=== PATIENT | male | born 1965 | race American Indian/Alaskan Native ===

== ENCOUNTER 2021-02-03 22:45 | Inpatient (IN) | payer MEDICAID ==
[2021-02-03] MEDS ORDERED: fentaNYL 100 MCG/2 ML SDV IVPUSH ONE (23:30)
[2021-02-03] MEDS ORDERED: Lactated Ringers 1,000 ML IV SCH (23:30)
--- NOTE | 2021-02-03 23:31 | EDM.PDOC ---
ED HPI GENERAL MEDICAL PROBLEM - General Chief Complaint: Abdominal Pain Stated Complaint: STOMACHE PAIN Time Seen by Provider: 02/03/21 23:25 Source of Information: Reports: Patient, RN Notes Reviewed History Limitations: Reports: No Limitations - History of Present Illness INITIAL COMMENTS - FREE TEXT/NARRATIVE: 55-year-old gentleman presents emergency department day complaint of epigastric pain, he states it started early this afternoon has progressively gotten worse no nausea sharp stabbing pain in the center of his abdomen right below his rib cage denies any surgeries Upper Abdomen Pain Score (Numeric/FACES): 10 - Related Data Allergies Allergy/AdvReac Type Severity Reaction Status Date / Time Penicillins Allergy Hives Verified 02/03/21 23:14 Home Meds: Home Meds . [Unable to Verify Home Med List] 02/03/21 [History] Past Medical History HEENT History: Reports: Impaired Vision Cardiovascular History: Reports: Hypertension Gastrointestinal History: Reports: Gastritis, GERD Genitourinary History: Reports: STD Musculoskeletal History: Reports: Fracture - Infectious Disease History Infectious Disease History: Reports: Chicken Pox Social & Family History - Tobacco Use Tobacco Use Status *Q: Current Every Day Tobacco User Years of Tobacco use: 30 Packs/Tins Daily: 0.5 - Caffeine Use Caffeine Use: Reports: Soda - Recreational Drug Use Recreational Drug Use: No ED ROS GENERAL - Review of Systems Review Of Systems: See Below Constitutional: Reports: No Symptoms HEENT: Reports: No Symptoms Respiratory: Reports: No Symptoms Cardiovascular: Reports: No Symptoms GI/Abdominal: Reports: Abdominal Pain. Denies: Constipation, Diarrhea, Nausea, Vomiting : Reports: No Symptoms ED EXAM, GI/ABD - Physical Exam Exam: See Below Exam Limited By: No Limitations General Appearance: Alert, Mild Distress Respiratory/Chest: No Respiratory Distress, Lungs Clear, Normal Breath Sounds, No Accessory Muscle Use, Chest Non-Tender Cardiovascular: Regular Rate, Rhythm, No Murmur GI/Abdominal Exam: Normal Bowel Sounds, Soft, No Distention, Tender (Epigastric region) Course - Vital Signs Last Recorded V/S: Last Vital Signs Temp 97.1 F 02/03/21 23:13 Pulse 64 02/03/21 23:13 Resp 16 02/03/21 23:13 BP 177/96 H 02/03/21 23:13 Pulse Ox 96 02/03/21 23:13 - Orders/Labs/Meds Orders: Active Orders 24 hr Category Date Time Status Peripheral IV Care [RC] . DIRECTED Care 02/03/21 23:28 Active UA W/MICROSCOPIC [URIN] Urgent Lab 02/03/21 23:28 Ordered Lactated Ringers [Ringers, Lactated] 1,000 ml Med 02/03/21 23:30 Active IV ASDIRECTED Sodium Chloride 0.9% [Saline Flush] Med 02/03/21 23:28 Active 10 ml FLUSH ASDIRECTED PRN Peripheral IV Insertion Adult [OM.PC] Urgent Oth 02/03/21 23:28 Ordered Medication Orders Lactated Ringer's (Ringers, Lactated) 1,000 mls @ 999 mls/hr IV ASDIRECTED NAZ Last Admin: 02/03/21 23:46 Dose: 999 mls/hr Documented by: THUY Sodium Chloride (Sodium Chloride 0.9% 10 Ml Syringe) 10 ml FLUSH ASDIRECTED PRN PRN Reason: Keep Vein Open Last Admin: 02/03/21 23:46 Dose: 10 ml Documented by: THUY Labs: Laboratory Tests 02/03/21 02/03/21 02/03/21 Range/Units 23:35 23:35 23:35 WBC 13.8 H (4.5-11.0) K/uL RBC 4.77 (4.30-5.90) M/uL Hgb 13.9 (12.0-15.0) g/dL Hct 41.1 (40.0-54.0) % MCV 86 (80-98) fL MCH 29 (27-31) pg MCHC 34 (32-36) % Plt Count 207 (150-400) K/uL Neut % (Auto) 88.8 H (36-66) % Lymph % (Auto) 3.8 L (24-44) % Dare % (Auto) 7.2 H (2-6) % Eos % (Auto) 0.1 L (2-4) % Baso % (Auto) 0.1 (0-1) % Sodium 137 L (140-148) mmol/L Potassium 4.2 (3.6-5.2) mmol/L Chloride 100 (100-108) mmol/L Carbon Dioxide 26 (21-32) mmol/L Anion Gap 15.2 H (5.0-14.0) mmol/L BUN 38 H (7-18) mg/dL Creatinine 2.1 H (0.8-1.3) mg/dL Est Cr Clr Drug Dosing 46.21 mL/min Estimated GFR (MDRD) 33 L (>60) Glucose 255 H (74-106) mg/dL Lactic Acid 2.2 H (0.4-2.0) mmol/L Calcium 8.4 L (8.5-10.1) mg/dL Total Bilirubin 1.9 H (0.2-1.0) mg/dL AST 1044 H (15-37) U/L ALT 993 H (12-78) U/L Alkaline Phosphatase 409 H (46-116) U/L Lactate Dehydrogenase (85-227) U/L Troponin I < 0.017 (0.000-0.056) ng/mL Total Protein 7.7 (6.4-8.2) g/dL Albumin 3.9 (3.4-5.0) g/dL Globulin 3.8 H (2.3-3.5) g/dL Albumin/Globulin Ratio 1.0 L (1.2-2.2) Lipase 67208 H (73-393) U/L Ethyl Alcohol mg/dL 02/04/21 02/04/21 Range/Units 00:25 00:29 WBC (4.5-11.0) K/uL RBC (4.30-5.90) M/uL Hgb (12.0-15.0) g/dL Hct (40.0-54.0) % MCV (80-98) fL MCH (27-31) pg MCHC (32-36) % Plt Count (150-400) K/uL Neut % (Auto) (36-66) % Lymph % (Auto) (24-44) % Dare % (Auto) (2-6) % Eos % (Auto) (2-4) % Baso % (Auto) (0-1) % Sodium (140-148) mmol/L Potassium (3.6-5.2) mmol/L Chloride (100-108) mmol/L Carbon Dioxide (21-32) mmol/L Anion Gap (5.0-14.0) mmol/L BUN (7-18) mg/dL Creatinine (0.8-1.3) mg/dL Est Cr Clr Drug Dosing mL/min Estimated GFR (MDRD) (>60) Glucose (74-106) mg/dL Lactic Acid (0.4-2.0) mmol/L Calcium (8.5-10.1) mg/dL Total Bilirubin (0.2-1.0) mg/dL AST (15-37) U/L ALT (12-78) U/L Alkaline Phosphatase (46-116) U/L Lactate Dehydrogenase 538 H (85-227) U/L Troponin I (0.000-0.056) ng/mL Total Protein (6.4-8.2) g/dL Albumin (3.4-5.0) g/dL Globulin (2.3-3.5) g/dL Albumin/Globulin Ratio (1.2-2.2) Lipase (73-393) U/L Ethyl Alcohol 7 mg/dL Meds: Medications Generic Name Dose Route Start Last Admin Trade Name Freq PRN Reason Stop Dose Admin Lactated Ringer's 1,000 mls @ 999 mls/hr 02/03/21 23:30 02/03/21 23:46 Ringers, Lactated IV 999 mls/hr ASDIRECTED NAZ Administration Sodium Chloride 10 ml 02/03/21 23:28 02/03/21 23:46 Sodium Chloride 0.9% 10 Ml Syringe FLUSH 10 ml ASDIRECTED PRN Administration Keep Vein Open Discontinued Medications Generic Name Dose Route Start Last Admin Trade Name Freq PRN Reason Stop Dose Admin Fentanyl 50 mcg 02/03/21 23:30 02/03/21 23:46 Fentanyl 100 Mcg/2 Ml Sdv IVPUSH 02/03/21 23:31 50 mcg ONETIME ONE Administration Sodium Chloride 81 mls @ 4 mls/sec 02/04/21 00:03 02/04/21 00:20 Normal Saline IV 02/04/21 00:04 4 mls/sec ASDIRECTED STA Administration Iopamidol 136 ml 02/04/21 00:02 02/04/21 00:20 Iopamidol 612 Mg/Ml 150 Ml Bottle IV 02/04/21 00:03 150 ml . DIRECTED STA Administration Departure - Departure Time of Disposition: 01:17 Disposition: Admitted As Inpatient 66 Condition: Poor Clinical Impression: Pancreatitis Qualifiers: Chronicity: acute Pancreatitis type: unspecified pancreatitis type Acute pancreatitis complication: no infection or necrosis Qualified Code(s): K85.90 - Acute pancreatitis without necrosis or infection, unspecified - Discharge Information Referrals: PCP,None [Primary Care Provider] - Forms: ED Department Discharge Sepsis Event Note (ED) - Evaluation Sepsis Screening Result: No Definite Risk - Focused Exam Vital Signs: Vital Signs Temp Pulse Resp BP Pulse Ox 02/03/21 23:13 97.1 F 64 16 177/96 H 96 02/03/21 23:11 97.1 F 64 16 177/96 H 96 - My Orders Last 24 Hours: My Active Orders 02/03/21 23:28 Peripheral IV Care [RC] . DIRECTED UA W/MICROSCOPIC [URIN] Urgent Sodium Chloride 0.9% [Saline Flush] 10 ml FLUSH ASDIRECTED PRN Peripheral IV Insertion Adult [OM.PC] Urgent 02/03/21 23:30 Lactated Ringers [Ringers, Lactated] 1,000 ml IV ASDIRECTED - Assessment/Plan Last 24 Hours: My Active Orders 02/03/21 23:28 Peripheral IV Care [RC] . DIRECTED UA W/MICROSCOPIC [URIN] Urgent Sodium Chloride 0.9% [Saline Flush] 10 ml FLUSH ASDIRECTED PRN Peripheral IV Insertion Adult [OM.PC] Urgent 02/03/21 23:30 Lactated Ringers [Ringers, Lactated] 1,000 ml IV ASDIRECTED Plan: Assessment Acuity = acute Site and laterality = pancreatitis Etiology = unknown Manifestations = abdominal pain Location of injury = Home Lab values = WBC elevated 13.8 consistent leukocytosis, creatinine elevated 2.1 consistent with acute renal failure stage G3 a glucose elevated to 55 consistent hyperglycemia lactic acid slightly elevated 2.2 total bilirubin elevated 1.9 consistent with hyperbilirubinemia AST 1044 ALT 993 consistent with elevated liver enzymes LDH elevated 538 [place] score 5 troponin was negative lipase elevated 13,278 consistent with a pancreatitis alcohol is at 7 CT scan describes acute pancreatitis no necrosis of the pancreas gallbladder is dilated however no stones are identified Plan Call discussed case hospitalist on-call at 1 AM kindly agreed to come evaluate the patient in the hospital for admission plan for ultrasound in the morning for further evaluation of the etiology of pancreatitis he denies alcohol use states he has not used alcohol for 8 months This note was dictated using [employer] voice recognition software please call with any questions on syntax or grammar.
[2021-02-03] MEDS: Sodium Chloride 0.9% 10 ML Syringe FLUSH PRN (23:46)
[2021-02-04] MEDS ORDERED: Iopamidol 612 MG/ML 150 ML Bottle IV STA (00:02)
--- NOTE | 2021-02-04 01:05 | CRLCT ---
INDICATION: EPIGASTRIC PAIN CT ABDOMEN AND PELVIS WITH CONTRAST TECHNIQUE: Multidetector CT imaging was performed through the abdomen and pelvis following intravenous contrast administration using 136 mL Isovue-300. Coronal and sagittal reconstructions were generated. COMPARISON: None. FINDINGS: Lower chest: Mild bibasilar lung atelectasis, greatest on the left. Liver: Within normal limits. Gallbladder and bile ducts: Nonspecific moderate distention of the gallbladder. No calcified gallstones identified. Question of mild gallbladder wall thickening or pericholecystic fluid. Intrahepatic and extrahepatic biliary dilation, with the proximal extrahepatic bile duct measuring up to 17 millimeters in diameter. No calcified intraductal stone identified. Pancreas: Prominent peripancreatic fat stranding consistent with acute pancreatitis. No evidence of pancreatic necrosis. Associated mild fluid extends into the central mesentery. Spleen: Normal. Adrenals: No nodules or masses. Kidneys, ureters, and urinary bladder: Bilateral renal cortical scarring and mild renal atrophy. No hydronephrosis. Mild diffuse wall thickening of the urinary bladder. Gastrointestinal tract: Slight wall thickening of the descending and proximal transverse segments of the duodenum likely secondary to inflammation of the adjacent pancreas. No evidence of bowel obstruction. The appendix is normal. Vascular structures: Normal caliber abdominal aorta. Patent portal and splenic veins. Peritoneum: No free air, abscess, or significant free fluid. Lymph nodes: No pathologically enlarged nodes identified. Reproductive organs: Mild prostatomegaly. Bones: Moderate multilevel spondylosis. IMPRESSION: 1. Acute pancreatitis of moderate severity. Correlation with serum amylase/lipase is suggested. No evidence of pancreatic necrosis. 2. Nonspecific moderate gallbladder distention. Question of mild gallbladder wall thickening and/or mild pericholecystic fluid. Moderate biliary dilation. Ultrasound is recommended for further evaluation, and MRCP may also be considered. 3. Nonacute additional findings as detailed above. SONIA RANDOLPH MD [employer] Dictated by Cesario Randolph MD @ 02/04/2021 1:04:18 AM Dictated by: Cesario Randolph MD @ 02/04/2021 01:04:30 (Electronically Signed)
[2021-02-04] MEDS ORDERED: fentaNYL 100 MCG/2 ML SDV IVPUSH ONE (01:45)
[2021-02-04] MEDS ORDERED: Albuterol 0.083% 2.5 MG/3 ML Neb Soln NEB PRN (01:52)
[2021-02-04] MEDS ORDERED: fentaNYL 100 MCG/2 ML SDV IVPUSH PRN (01:52)
--- NOTE | 2021-02-04 01:55 | PCM.HP.2 ---
H&P History of Present Illness - General Date of Service: 02/03/21 Admit Problem/Dx: Admission Diagnosis/Problem Admission Diagnosis/Problem Pancreatitis Source of Information: Patient, Provider, RN History Limitations: Reports: No Limitations - History of Present Illness Initial Comments - Free Text/Narative: chief complaint: abdominal pain ER Note. 55-year-old gentleman presents emergency department day complaint of epigastric pain, he states it started early this afternoon has progressively gotten worse no nausea sharp stabbing pain in the center of his abdomen right below his rib cage denies any surgeries. Report hasnot been feeling well for 2 months- worse the past two weeks. Last meal at 3:30 pm today- ate a 3 little sandwiches and water- but abdominal pain was worse. Lab values = WBC elevated 13.8 consistent leukocytosis, creatinine elevated 2.1 consistent with acute renal failure stage G3 a glucose elevated to 55 consistent hyperglycemia lactic acid slightly elevated 2.2 total bilirubin elevated 1.9 consistent with hyperbilirubinemia AST 1044 ALT 993 consistent with elevated liver enzymes LDH elevated 538 Fortson score 5 troponin was negative lipase elevated 13,278 consistent with a pancreatitis alcohol is at 7 CT scan describes acute pancreatitis no necrosis of the pancreas gallbladder is dilated however no stones are identified Plan Call discussed case hospitalist on-call at 1 AM kindly agreed to come evaluate the patient in the hospital for admission plan for ultrasound in the morning for further evaluation of the etiology of pancreatitis he denies alcohol use states he has not used alcohol for 8 months Onset of Symptoms: Reports: Today Symptom Onset Date: 02/04/21 Symptom Onset Time: 15:30 Duration of Symptoms: Reports: Resolved Prior to Arrival, Other (reports not feeling well for 2 months, worse the past two weeks.) Location: Reports: Abdomen Quality: Reports: Sharp, Stabbing Severity: Severe (rate pain at 7 or 8) Improves with: Reports: None Worsens with: Reports: Eating Associated Symptoms: Reports: Fever/Chills, Loss of Appetite Upper Abdomen Pain Score (Numeric/FACES): 10 - Related Data Allergies/Adverse Reactions: Allergies Allergy/AdvReac Type Severity Reaction Status Date / Time Penicillins Allergy Hives Verified 02/04/21 02:14 Home Medications: Home Meds hydroCHLOROthiazide [Hydrochlorothiazide] 12.5 mg PO DAILY 02/04/21 [History] Past Medical History HEENT History: Reports: Impaired Vision Cardiovascular History: Reports: Hypertension Gastrointestinal History: Reports: Gastritis, GERD Genitourinary History: Reports: STD Musculoskeletal History: Reports: Fracture - Infectious Disease History Infectious Disease History: Reports: Chicken Pox Social & Family History - Tobacco Use Tobacco Use Status *Q: Current Every Day Tobacco User Years of Tobacco use: 30 Packs/Tins Daily: 0.5 - Caffeine Use Caffeine Use: Reports: Soda - Recreational Drug Use Recreational Drug Use: No - Living Situation & Occupation Living situation: Reports: Single, Alone Occupation: Unemployed (lives alone in [facility], has 14 children by 7 different Ladies, had his first child a daughter at age 13 years.) H&P Review of Systems - Review of Systems: Review Of Systems: See Below General: Reports: Fever, Other (neat and groomed, pleasant, curled in a ball, distressed) HEENT: Reports: Glasses Pulmonary: Reports: No Symptoms Cardiovascular: Reports: No Symptoms Gastrointestinal: Reports: Abdominal Pain Genitourinary: Reports: No Symptoms Musculoskeletal: Reports: No Symptoms Skin: Reports: No Symptoms Psychiatric: Reports: No Symptoms Neurological: Reports: No Symptoms Hematologic/Lymphatic: Reports: No Symptoms Immunologic: Reports: No Symptoms Exam - Exam Exam: See Below - Vital Signs Vital Signs: Last Vital Signs Temp 97.1 F 02/03/21 23:13 Pulse 64 02/03/21 23:13 Resp 16 02/03/21 23:13 BP 177/96 H 02/03/21 23:13 Pulse Ox 96 02/03/21 23:13 Weight: 200 lb - Exam General: Alert, Oriented, Cooperative, Moderate Distress, Other (neat and groome d, pleasant, curled in a ball position, rates pain at 7 or 8.) HEENT: PERRLA, Conjunctiva Clear, EACs Clear, EOMI, Hearing Intact, Mucosa Moist & Misenheimer, Nares Patent, Normal Nasal Septum, Posterior Pharynx Clear, TMs Clear, Other (no natural teeth present) Neck: Supple, Trachea Midline, 2 Lungs: Clear to Auscultation, Normal Respiratory Effort Cardiovascular: Regular Rate, Regular Rhythm, Normal S1, Normal S2 GI/Abdominal Exam: Normal Bowel Sounds, No Distention, Guarding (generalized), Tender (generalized) (Male) Exam: Deferred Rectal (Males) Exam: Deferred Back Exam: Normal Inspection, Full Range of Motion Extremities: Normal Inspection, Normal Range of Motion, Non-Tender, No Pedal Edema, Normal Capillary Refill Peripheral Pulses: 2+: Radial (L), Radial (R), Dorsalis Pedis (L), Dorsalis Pedis (R) Skin: Warm, Dry, Intact Neurological: Cranial Nerves Intact, Reflexes Equal Bilateral Neuro Extensive - Mental Status: Alert, Oriented x3, Normal Mood/Affect, Normal Cognition Neuro Extensive - Motor, Sensory, Reflexes: CN II-XII Intact, Normal Gait, Normal Reflexes Psychiatric: Alert, Normal Affect, Normal Mood - Patient Data Lab Results Last 24 hrs: Laboratory Results - last 24 hr 02/03/21 02/03/21 02/03/21 Range/Units 23:35 23:35 23:35 WBC 13.8 H (4.5-11.0) K/uL RBC 4.77 (4.30-5.90) M/uL Hgb 13.9 (12.0-15.0) g/dL Hct 41.1 (40.0-54.0) % MCV 86 (80-98) fL MCH 29 (27-31) pg MCHC 34 (32-36) % Plt Count 207 (150-400) K/uL Neut % (Auto) 88.8 H (36-66) % Lymph % (Auto) 3.8 L (24-44) % Traverse % (Auto) 7.2 H (2-6) % Eos % (Auto) 0.1 L (2-4) % Baso % (Auto) 0.1 (0-1) % Sodium 137 L (140-148) mmol/L Potassium 4.2 (3.6-5.2) mmol/L Chloride 100 (100-108) mmol/L Carbon Dioxide 26 (21-32) mmol/L Anion Gap 15.2 H (5.0-14.0) mmol/L BUN 38 H (7-18) mg/dL Creatinine 2.1 H (0.8-1.3) mg/dL Est Cr Clr Drug Dosing 46.21 mL/min Estimated GFR (MDRD) 33 L (>60) Glucose 255 H (74-106) mg/dL Lactic Acid 2.2 H (0.4-2.0) mmol/L Calcium 8.4 L (8.5-10.1) mg/dL Total Bilirubin 1.9 H (0.2-1.0) mg/dL AST 1044 H (15-37) U/L ALT 993 H (12-78) U/L Alkaline Phosphatase 409 H (46-116) U/L Lactate Dehydrogenase (85-227) U/L Troponin I < 0.017 (0.000-0.056) ng/mL Total Protein 7.7 (6.4-8.2) g/dL Albumin 3.9 (3.4-5.0) g/dL Globulin 3.8 H (2.3-3.5) g/dL Albumin/Globulin Ratio 1.0 L (1.2-2.2) Lipase 54865 H (73-393) U/L Ethyl Alcohol mg/dL 02/04/21 02/04/21 Range/Units 00:25 00:29 WBC (4.5-11.0) K/uL RBC (4.30-5.90) M/uL Hgb (12.0-15.0) g/dL Hct (40.0-54.0) % MCV (80-98) fL MCH (27-31) pg MCHC (32-36) % Plt Count (150-400) K/uL Neut % (Auto) (36-66) % Lymph % (Auto) (24-44) % Traverse % (Auto) (2-6) % Eos % (Auto) (2-4) % Baso % (Auto) (0-1) % Sodium (140-148) mmol/L Potassium (3.6-5.2) mmol/L Chloride (100-108) mmol/L Carbon Dioxide (21-32) mmol/L Anion Gap (5.0-14.0) mmol/L BUN (7-18) mg/dL Creatinine (0.8-1.3) mg/dL Est Cr Clr Drug Dosing mL/min Estimated GFR (MDRD) (>60) Glucose (74-106) mg/dL Lactic Acid (0.4-2.0) mmol/L Calcium (8.5-10.1) mg/dL Total Bilirubin (0.2-1.0) mg/dL AST (15-37) U/L ALT (12-78) U/L Alkaline Phosphatase (46-116) U/L Lactate Dehydrogenase 538 H (85-227) U/L Troponin I (0.000-0.056) ng/mL Total Protein (6.4-8.2) g/dL Albumin (3.4-5.0) g/dL Globulin (2.3-3.5) g/dL Albumin/Globulin Ratio (1.2-2.2) Lipase (73-393) U/L Ethyl Alcohol 7 mg/dL Result Diagrams: 02/03/21 23:35 02/03/21 23:35 Sepsis Event Note - Evaluation Sepsis Screening Result: No Definite Risk - Focused Exam Vital Signs: Vital Signs Temp Pulse Resp BP Pulse Ox 02/03/21 23:13 97.1 F 64 16 177/96 H 96 02/03/21 23:11 97.1 F 64 16 177/96 H 96 - Problem List (1) Pancreatitis SNOMED Code(s): 53245232 ICD Code: K85.90 - ACUTE PANCREATITIS WITHOUT NECROSIS OR INFECTION, UNSP Status: Acute Priority: High Current Visit: Yes Qualifiers: Chronicity: acute Pancreatitis type: unspecified pancreatitis type Acute pancreatitis complication: no infection or necrosis Qualified Code(s): K85.90 - Acute pancreatitis without necrosis or infection, unspecified (2) Heroin use disorder, moderate, in early remission, on maintenance therapy, dependence SNOMED Code(s): 162514560, 675759708 ICD Code: F11.21 - OPIOID DEPENDENCE, IN REMISSION Status: Acute Priority: Low Current Visit: Yes (3) Alcoholism in recovery SNOMED Code(s): 04564391 ICD Code: F10.21 - ALCOHOL DEPENDENCE, IN REMISSION Status: Acute Priority: Low Current Visit: Yes (4) Tobacco dependence SNOMED Code(s): 03382205 ICD Code: F17.200 - NICOTINE DEPENDENCE, UNSPECIFIED, UNCOMPLICATED Status: Acute Priority: Low Current Visit: Yes Problem List Initiated/Reviewed/Updated: Yes Orders Last 24hrs: Active Orders 24 hr Category Date Time Status Cardiac Monitoring [RC] CONTINUOUS Care 02/04/21 01:52 Active Diabetes Education [RC] Click to Edit Care 02/04/21 01:52 Active Intake and Output [RC] QSHIFT Care 02/04/21 01:52 Active Notify Provider Vital Signs [RC] ASDIRECTED Care 02/04/21 01:52 Active Notify Provider [RC] PRN Care 02/04/21 01:52 Active Oxygen Therapy [RC] PRN Care 02/04/21 01:52 Active Peripheral IV Care [RC] . DIRECTED Care 02/03/21 23:28 Active Pulse Oximetry [RC] CONTINUOUS Care 02/04/21 01:52 Active RT Aerosol Therapy [RC] ASDIRECTED Care 02/04/21 01:52 Active Up ad Stephanie [RC] ASDIRECTED Care 02/04/21 01:52 Active VTE/DVT Education [RC] Per Unit Routine Care 02/04/21 01:52 Active Vital Signs [RC] Q4H Care 02/04/21 01:52 Active Nothing per Oral Now Diet [DIET] Diet 02/04/21 Breakfast Active Abdomen Comp [US] Timed Exams 02/04/21 08:30 Ordered AMYLASE [CHEM] AM Lab 02/04/21 05:11 Ordered BASIC METABOLIC PANEL,BMP [CHEM] AM Lab 02/04/21 05:11 Ordered CBC WITH AUTO DIFF [HEME] AM Lab 02/04/21 05:11 Ordered DRUG SCREEN, URINE [URCHEM] Urgent Lab 02/04/21 01:52 Ordered GLUCOSE POC LAB TO COLLECT JPM [POC] QIDACANDBED Lab 02/04/21 07:30 Ordered GLUCOSE POC LAB TO COLLECT JPM [POC] QIDACANDBED Lab 02/04/21 11:30 Ordered GLUCOSE POC LAB TO COLLECT JPM [POC] QIDACANDBED Lab 02/04/21 16:30 Ordered GLUCOSE POC LAB TO COLLECT JPM [POC] QIDACANDBED Lab 02/04/21 21:00 Ordered LIPASE [CHEM] AM Lab 02/04/21 05:11 Ordered UA W/MICROSCOPIC [URIN] Urgent Lab 02/03/21 23:28 Ordered UA W/MICROSCOPIC [URIN] Urgent Lab 02/04/21 01:52 Ordered Albuterol [Proventil Neb Soln] Med 02/04/21 01:52 Ordered 2.5 mg NEB Q4H PRN Insulin Lispro [HumaLOG] Med 02/04/21 07:00 Ordered See Protocol SUBCUT QIDACANDBED Lactated Ringers [Ringers, Lactated] 1,000 ml Med 02/03/21 23:30 Active IV ASDIRECTED Nicotine [Habitrol] Med 02/04/21 09:00 Ordered 14 mg TRDERM DAILY Pantoprazole [ProTONIX IV] Med 02/04/21 09:00 Ordered 40 mg IV DAILY Sodium Chloride 0.9% [Normal Saline] 1,000 ml Med 02/04/21 01:52 Ordered IV ASDIRECTED Sodium Chloride 0.9% [Saline Flush] Med 02/03/21 23:28 Active 10 ml FLUSH ASDIRECTED PRN fentaNYL [Sublimaze] Med 02/04/21 01:52 Ordered 50 mcg IVPUSH Q6H PRN Peripheral IV Insertion Adult [OM.PC] Urgent Oth 02/03/21 23:28 Ordered Sequential Compression Device [OM.PC] Per Unit Routine Oth 02/04/21 01:52 Ordered Resuscitation Status Routine Resus Stat 02/04/21 01:39 Ordered Medication Orders Albuterol (Albuterol 0.083% 2.5 Mg/3 Ml Neb Soln) 2.5 mg NEB Q4H PRN PRN Reason: Shortness Of Breath/wheezing Fentanyl (Fentanyl 100 Mcg/2 Ml Sdv) 50 mcg IVPUSH Q6H PRN PRN Reason: Pain (severe 7-10) Lactated Ringer's (Ringers, Lactated) 1,000 mls @ 999 mls/hr IV ASDIRECTED [facility] Last Admin: 02/03/21 23:46 Dose: 999 mls/hr Documented by: THUY Sodium Chloride (Normal Saline) 1,000 mls @ 125 mls/hr IV ASDIRECTED [facility] Insulin Human Lispro (Insulin Lispro 100 Unit/Ml 3 Ml Kwikpen) 0 unit SUBCUT QIDACANDBED [facility]; Protocol Nicotine (Nicotine 14 Mg/24 Hr Patch) 14 mg TRDERM DAILY [facility] Pantoprazole Sodium (Pantoprazole 40 Mg Vial) 40 mg IV DAILY [facility] Sodium Chloride (Sodium Chloride 0.9% 10 Ml Syringe) 10 ml FLUSH ASDIRECTED PRN PRN Reason: Keep Vein Open Last Admin: 02/03/21 23:46 Dose: 10 ml Documented by: THUY Assessment/Plan Comment:: ASSESSMENT / PLAN OF CARE: PANCREATITIS This is a 55 year old male reports two week history of worsen abdominal pain but has been sick for two months. Lab values = CBC unremarkable WBC 13.8, hgb 13.9, hct 41.1, plts 207 , Na+ 137, K+ 4.2, cl 100, anion gap 15.2, BUN 38, Cr 2.1, glucose 255, cO2 26, gfr 33. lipse 04389,lactic acid 2.2, Ca+ 8.4, total bili 1.9, ast 1044, ast 993, alk. phos 409, LD 538, Troponin <0.017, total protein 7.7, albumin 3.9, alcohol 7, urine with micro pending, urine drug screen pending. CT scan of the abdomen- pelvis with contrast- gallbladder and bile ducts : nonspecific moderate distention of the gallbladder. -see full report. Pancrease : prominent peripancreatic fat stranding consistent with acute pancreatitis. no evidence of pancreatic necrosis. associated mild fluid extends into the central mesentery.- see full report. Acute Pancreatitis -Admit to ICU Med-Surg overflow for further monitoring -NPO -IV Fluids Normal Saline at 125 mL per hour -IV Fentanyl 50 mcg every 6 hours for pain control rate at 7 to 9 -anti nausea medication ordered -Advise to notify nurses of any fever or worsen pain -And a.m. labs: CBC, BMP, CRP, amylase, lipase Hyperglycemia - undiagnosed Diabetes type 2 -blood glucose checks before meals and at bedtime -low dose sliding scale History of Heroin addiction- reports was a daily user of IV heroin for 20 years, started Opiate Treatment Program at [place], [place]. May 2020 -reports Suboxone 12 mg sl daily dosing History of Alcohol addiction- reports drank 1 liter of Vodka and 1 case of beer daily "long time", stopped May 2020 -Outpatient Treatment Program Tobacco dependence -Nicotine patch 14 mg daily. Maintenance issues -Orders home meds reviewed and ordered as appropriate -Nutrition: NPO -Owen catheter not indicated at this time -DVT: SCD -PPI; IV Protonix 40mg daily CODE STATUS: FULL Admission status: Admit to ICU Med-Surg overflow This Patient is Admitted for Inpatient Services and is Medically Appropriate and Meets Medical Necessity for Inpatient Admission. I Reasonably Expect the Patient will Require Inpatient Services that Span a Period of Over 2 Midnights. My Rationale for Medically Necessary Inpatient Care will be Found in the Admission History & Physical and Progress Notes. I Reasonably Expect the Patient to be Discharged or Transferred within 96 Hours After Admission to this [facility] Hospital. Disposition: home Primary care provider: Donna Heller [facility] Hospitalist: Dr. Torre - Mortality Measure Prognosis:: Good
[2021-02-04] MEDS: Sodium Chloride 0.9% 1,000 ML IV SCH ×3 (02:27→17:07)
[2021-02-04] MEDS: Pantoprazole 40 MG Vial IV SCH (08:08)
[2021-02-04] MEDS: Nicotine 14 MG/24 Hr Patch TRDERM SCH (08:09)
[2021-02-04] MEDS: Insulin Lispro 100 Unit/ML 3 ML KwikPen SUBCUT SCH ×4 (08:17→20:23)
[2021-02-04] MEDS ORDERED: LORazepam 2 MG/ML SDV IVPUSH PRN (08:59)
[2021-02-04] MEDS ORDERED: Ondansetron 4 MG Tab.DIS PO PRN (08:59)
--- NOTE | 2021-02-04 09:03 | PCM.PN ---
- General Info Date of Service: 02/04/21 Subjective Update: There were no acute events overnight. The patient reports that his pain is better today than yesterday but still moderate in intensity. Pain is located in the epigastrium and radiates through the back. Laying on the right side makes the pain less. Some nausea but no vomiting. No fevers. Lipase level is down to about 18,000. Right upper quadrant ultrasound showed stones but was otherwise technically difficult due to bowel gas. - Review of Systems General: Denies: Fever - Patient Data Vitals - Most Recent: Last Vital Signs Temp 36.2 C 02/04/21 02:28 Pulse 61 02/04/21 05:56 Resp 17 02/04/21 05:56 BP 158/75 H 02/04/21 05:56 Pulse Ox 98 02/04/21 05:56 Weight - Most Recent: 94.03 kg I&O - Last 24 Hours: Intake & Output 02/03/21 02/04/21 02/04/21 22:59 06:59 14:59 Output Total 625 Balance -625 Lab Results Last 24 Hours: Laboratory Results - last 24 hr 02/03/21 02/03/21 02/03/21 Range/Units 23:35 23:35 23:35 WBC 13.8 H (4.5-11.0) K/uL RBC 4.77 (4.30-5.90) M/uL Hgb 13.9 (12.0-15.0) g/dL Hct 41.1 (40.0-54.0) % MCV 86 (80-98) fL MCH 29 (27-31) pg MCHC 34 (32-36) % Plt Count 207 (150-400) K/uL Neut % (Auto) 88.8 H (36-66) % Lymph % (Auto) 3.8 L (24-44) % [place] % (Auto) 7.2 H (2-6) % Eos % (Auto) 0.1 L (2-4) % Baso % (Auto) 0.1 (0-1) % Sodium 137 L (140-148) mmol/L Potassium 4.2 (3.6-5.2) mmol/L Chloride 100 (100-108) mmol/L Carbon Dioxide 26 (21-32) mmol/L Anion Gap 15.2 H (5.0-14.0) mmol/L BUN 38 H (7-18) mg/dL Creatinine 2.1 H (0.8-1.3) mg/dL Est Cr Clr Drug Dosing 46.21 mL/min Estimated GFR (MDRD) 33 L (>60) Glucose 255 H (74-106) mg/dL Lactic Acid 2.2 H (0.4-2.0) mmol/L Calcium 8.4 L (8.5-10.1) mg/dL Total Bilirubin 1.9 H (0.2-1.0) mg/dL Direct Bilirubin (0.0-0.2) mg/dL Indirect Bilirubin AST 1044 H (15-37) U/L ALT 993 H (12-78) U/L Alkaline Phosphatase 409 H (46-116) U/L Lactate Dehydrogenase (85-227) U/L Troponin I < 0.017 (0.000-0.056) ng/mL Total Protein 7.7 (6.4-8.2) g/dL Albumin 3.9 (3.4-5.0) g/dL Globulin 3.8 H (2.3-3.5) g/dL Albumin/Globulin Ratio 1.0 L (1.2-2.2) Amylase (25-115) U/L Lipase 94112 H (73-393) U/L Urine Color (YELLOW) Urine Appearance (CLEAR) Urine pH (5.0-8.0) Ur Specific [place] (1.008-1.030) Urine Protein (NEGATIVE) mg/dL Urine Glucose (UA) (NEGATIVE) mg/dL Urine Ketones (NEGATIVE) mg/dL Urine Occult Blood (NEGATIVE) Urine Nitrite (NEGATIVE) Urine Bilirubin (NEGATIVE) Urine Urobilinogen (0.2-1.0) EU/dL Ur Leukocyte Esterase (NEGATIVE) Urine RBC (0-5) Urine WBC (0-5) Ur Epithelial Cells Amorphous Sediment Urine Bacteria Urine Mucus Urine Opiates Screen (NEGATIVE) Ur Oxycodone Screen (NEGATIVE) Urine Methadone Screen (NEGATIVE) Ur Propoxyphene Screen (NEGATIVE) Ur Barbiturates Screen (NEGATIVE) Ur Tricyclics Screen (NEGATIVE) Ur Phencyclidine Scrn (NEGATIVE) Ur Amphetamine Screen (NEGATIVE) U Methamphetamines Scrn (NEGATIVE) Urine MDMA Screen (NEGATIVE) U Benzodiazepines Scrn (NEGATIVE) U Cocaine Metab Screen (NEGATIVE) U Marijuana (THC) Screen (NEGATIVE) Ethyl Alcohol mg/dL 02/04/21 02/04/21 02/04/21 Range/Units 00:25 00:29 05:00 WBC 16.2 H (4.5-11.0) K/uL RBC 4.61 (4.30-5.90) M/uL Hgb 13.3 (12.0-15.0) g/dL Hct 39.3 L (40.0-54.0) % MCV 85 (80-98) fL MCH 29 (27-31) pg MCHC 34 (32-36) % Plt Count 212 (150-400) K/uL Neut % (Auto) 85.7 H (36-66) % Lymph % (Auto) 7.2 L (24-44) % [place] % (Auto) 7.0 H (2-6) % Eos % (Auto) 0.0 L (2-4) % Baso % (Auto) 0.1 (0-1) % Sodium (140-148) mmol/L Potassium (3.6-5.2) mmol/L Chloride (100-108) mmol/L Carbon Dioxide (21-32) mmol/L Anion Gap (5.0-14.0) mmol/L BUN (7-18) mg/dL Creatinine (0.8-1.3) mg/dL Est Cr Clr Drug Dosing mL/min Estimated GFR (MDRD) (>60) Glucose (74-106) mg/dL Lactic Acid (0.4-2.0) mmol/L Calcium (8.5-10.1) mg/dL Total Bilirubin (0.2-1.0) mg/dL Direct Bilirubin (0.0-0.2) mg/dL Indirect Bilirubin AST (15-37) U/L ALT (12-78) U/L Alkaline Phosphatase (46-116) U/L Lactate Dehydrogenase 538 H (85-227) U/L Troponin I (0.000-0.056) ng/mL Total Protein (6.4-8.2) g/dL Albumin (3.4-5.0) g/dL Globulin (2.3-3.5) g/dL Albumin/Globulin Ratio (1.2-2.2) Amylase (25-115) U/L Lipase (73-393) U/L Urine Color (YELLOW) Urine Appearance (CLEAR) Urine pH (5.0-8.0) Ur Specific [place] (1.008-1.030) Urine Protein (NEGATIVE) mg/dL Urine Glucose (UA) (NEGATIVE) mg/dL Urine Ketones (NEGATIVE) mg/dL Urine Occult Blood (NEGATIVE) Urine Nitrite (NEGATIVE) Urine Bilirubin (NEGATIVE) Urine Urobilinogen (0.2-1.0) EU/dL Ur Leukocyte Esterase (NEGATIVE) Urine RBC (0-5) Urine WBC (0-5) Ur Epithelial Cells Amorphous Sediment Urine Bacteria Urine Mucus Urine Opiates Screen (NEGATIVE) Ur Oxycodone Screen (NEGATIVE) Urine Methadone Screen (NEGATIVE) Ur Propoxyphene Screen (NEGATIVE) Ur Barbiturates Screen (NEGATIVE) Ur Tricyclics Screen (NEGATIVE) Ur Phencyclidine Scrn (NEGATIVE) Ur Amphetamine Screen (NEGATIVE) U Methamphetamines Scrn (NEGATIVE) Urine MDMA Screen (NEGATIVE) U Benzodiazepines Scrn (NEGATIVE) U Cocaine Metab Screen (NEGATIVE) U Marijuana (THC) Screen (NEGATIVE) Ethyl Alcohol 7 mg/dL 02/04/21 02/04/21 02/04/21 Range/Units 05:00 07:55 07:55 WBC (4.5-11.0) K/uL RBC (4.30-5.90) M/uL Hgb (12.0-15.0) g/dL Hct (40.0-54.0) % MCV (80-98) fL MCH (27-31) pg MCHC (32-36) % Plt Count (150-400) K/uL Neut % (Auto) (36-66) % Lymph % (Auto) (24-44) % [place] % (Auto) (2-6) % Eos % (Auto) (2-4) % Baso % (Auto) (0-1) % Sodium 138 L (140-148) mmol/L Potassium 5.3 H (3.6-5.2) mmol/L Chloride 103 (100-108) mmol/L Carbon Dioxide 27 (21-32) mmol/L Anion Gap 13.3 (5.0-14.0) mmol/L BUN 35 H (7-18) mg/dL Creatinine 1.9 H (0.8-1.3) mg/dL Est Cr Clr Drug Dosing 51.07 mL/min Estimated GFR (MDRD) 37 L (>60) Glucose 141 H (74-106) mg/dL Lactic Acid (0.4-2.0) mmol/L Calcium 8.5 (8.5-10.1) mg/dL Total Bilirubin (0.2-1.0) mg/dL Direct Bilirubin (0.0-0.2) mg/dL Indirect Bilirubin AST (15-37) U/L ALT (12-78) U/L Alkaline Phosphatase (46-116) U/L Lactate Dehydrogenase (85-227) U/L Troponin I (0.000-0.056) ng/mL Total Protein (6.4-8.2) g/dL Albumin (3.4-5.0) g/dL Globulin (2.3-3.5) g/dL Albumin/Globulin Ratio (1.2-2.2) Amylase 4941 H (25-115) U/L Lipase 96810 H (73-393) U/L Urine Color Yellow (YELLOW) Urine Appearance Clear (CLEAR) Urine pH 6.0 (5.0-8.0) Ur Specific [place] 1.015 (1.008-1.030) Urine Protein 100 H (NEGATIVE) mg/dL Urine Glucose (UA) 500 H (NEGATIVE) mg/dL Urine Ketones Negative (NEGATIVE) mg/dL Urine Occult Blood Small H (NEGATIVE) Urine Nitrite Negative (NEGATIVE) Urine Bilirubin Negative (NEGATIVE) Urine Urobilinogen 0.2 (0.2-1.0) EU/dL Ur Leukocyte Esterase Negative (NEGATIVE) Urine RBC 5-10 H (0-5) Urine WBC 0-5 (0-5) Ur Epithelial Cells Rare Amorphous Sediment Few Urine Bacteria Few Urine Mucus Not seen Urine Opiates Screen Negative (NEGATIVE) Ur Oxycodone Screen Negative (NEGATIVE) Urine Methadone Screen Negative (NEGATIVE) Ur Propoxyphene Screen Negative (NEGATIVE) Ur Barbiturates Screen Negative (NEGATIVE) Ur Tricyclics Screen Negative (NEGATIVE) Ur Phencyclidine Scrn Negative (NEGATIVE) Ur Amphetamine Screen Negative (NEGATIVE) U Methamphetamines Scrn Negative (NEGATIVE) Urine MDMA Screen Negative (NEGATIVE) U Benzodiazepines Scrn Negative (NEGATIVE) U Cocaine Metab Screen Negative (NEGATIVE) U Marijuana (THC) Screen Negative (NEGATIVE) Ethyl Alcohol mg/dL 02/04/21 Range/Units 07:56 WBC (4.5-11.0) K/uL RBC (4.30-5.90) M/uL Hgb (12.0-15.0) g/dL Hct (40.0-54.0) % MCV (80-98) fL MCH (27-31) pg MCHC (32-36) % Plt Count (150-400) K/uL Neut % (Auto) (36-66) % Lymph % (Auto) (24-44) % [place] % (Auto) (2-6) % Eos % (Auto) (2-4) % Baso % (Auto) (0-1) % Sodium (140-148) mmol/L Potassium (3.6-5.2) mmol/L Chloride (100-108) mmol/L Carbon Dioxide (21-32) mmol/L Anion Gap (5.0-14.0) mmol/L BUN (7-18) mg/dL Creatinine (0.8-1.3) mg/dL Est Cr Clr Drug Dosing mL/min Estimated GFR (MDRD) (>60) Glucose (74-106) mg/dL Lactic Acid (0.4-2.0) mmol/L Calcium (8.5-10.1) mg/dL Total Bilirubin 1.3 H (0.2-1.0) mg/dL Direct Bilirubin 0.45 H (0.0-0.2) mg/dL Indirect Bilirubin 0.85 AST 614 H (15-37) U/L ALT 903 H (12-78) U/L Alkaline Phosphatase 358 H (46-116) U/L Lactate Dehydrogenase (85-227) U/L Troponin I (0.000-0.056) ng/mL Total Protein 7.1 (6.4-8.2) g/dL Albumin 3.5 (3.4-5.0) g/dL Globulin 3.6 H (2.3-3.5) g/dL Albumin/Globulin Ratio 1.0 L (1.2-2.2) Amylase (25-115) U/L Lipase (73-393) U/L Urine Color (YELLOW) Urine Appearance (CLEAR) Urine pH (5.0-8.0) Ur Specific [place] (1.008-1.030) Urine Protein (NEGATIVE) mg/dL Urine Glucose (UA) (NEGATIVE) mg/dL Urine Ketones (NEGATIVE) mg/dL Urine Occult Blood (NEGATIVE) Urine Nitrite (NEGATIVE) Urine Bilirubin (NEGATIVE) Urine Urobilinogen (0.2-1.0) EU/dL Ur Leukocyte Esterase (NEGATIVE) Urine RBC (0-5) Urine WBC (0-5) Ur Epithelial Cells Amorphous Sediment Urine Bacteria Urine Mucus Urine Opiates Screen (NEGATIVE) Ur Oxycodone Screen (NEGATIVE) Urine Methadone Screen (NEGATIVE) Ur Propoxyphene Screen (NEGATIVE) Ur Barbiturates Screen (NEGATIVE) Ur Tricyclics Screen (NEGATIVE) Ur Phencyclidine Scrn (NEGATIVE) Ur Amphetamine Screen (NEGATIVE) U Methamphetamines Scrn (NEGATIVE) Urine MDMA Screen (NEGATIVE) U Benzodiazepines Scrn (NEGATIVE) U Cocaine Metab Screen (NEGATIVE) U Marijuana (THC) Screen (NEGATIVE) Ethyl Alcohol mg/dL Med Orders - Current: Current Medications Albuterol (Albuterol 0.083% 2.5 Mg/3 Ml Neb Soln) 2.5 mg NEB Q4H PRN PRN Reason: Shortness Of Breath/wheezing Sodium Chloride (Normal Saline) 1,000 mls @ 125 mls/hr IV ASDIRECTED [facility] Last Admin: 02/04/21 02:27 Dose: 125 mls/hr Documented by: Insulin Human Lispro (Insulin Lispro 100 Unit/Ml 3 Ml Kwikpen) 0 unit SUBCUT QIDACANDBED [facility]; Protocol Last Admin: 02/04/21 08:17 Dose: Not Given Documented by: Nicotine (Nicotine 14 Mg/24 Hr Patch) 14 mg TRDERM DAILY [facility] Last Admin: 02/04/21 08:09 Dose: 14 mg Documented by: Pantoprazole Sodium (Pantoprazole 40 Mg Vial) 40 mg IV DAILY [facility] Last Admin: 02/04/21 08:08 Dose: 40 mg Documented by: Sodium Chloride (Sodium Chloride 0.9% 10 Ml Syringe) 10 ml FLUSH ASDIRECTED PRN PRN Reason: Keep Vein Open Last Admin: 02/03/21 23:46 Dose: 10 ml Documented by: Discontinued Medications Fentanyl (Fentanyl 100 Mcg/2 Ml Sdv) 50 mcg IVPUSH ONETIME ONE Stop: 02/03/21 23:31 Last Admin: 02/03/21 23:46 Dose: 50 mcg Documented by: Fentanyl (Fentanyl 100 Mcg/2 Ml Sdv) 50 mcg IVPUSH ONETIME ONE Stop: 02/04/21 01:46 Last Admin: 02/04/21 01:57 Dose: 50 mcg Documented by: Fentanyl (Fentanyl 100 Mcg/2 Ml Sdv) 50 mcg IVPUSH Q6H PRN PRN Reason: Pain (severe 7-10) Last Admin: 02/04/21 09:00 Dose: 50 mcg Documented by: Lactated Ringer's (Ringers, Lactated) 1,000 mls @ 999 mls/hr IV ASDIRECTED [facility] Last Admin: 02/03/21 23:46 Dose: 999 mls/hr Documented by: Sodium Chloride (Normal Saline) 81 mls @ 4 mls/sec IV ASDIRECTED [facility] Stop: 02/04/21 00:04 Last Admin: 02/04/21 00:20 Dose: 4 mls/sec Documented by: Iopamidol (Iopamidol 612 Mg/Ml 150 Ml Bottle) 136 ml IV . DIRECTED STA Stop: 02/04/21 00:03 Last Admin: 02/04/21 00:20 Dose: 150 ml Documented by: - Exam Quality Assessment: No: Supplemental Oxygen General: Alert, Oriented, Cooperative, Mild Distress Lungs: Normal Respiratory Effort. No: Wheezing Cardiovascular: Regular Rate, Regular Rhythm GI/Abdominal Exam: Soft, No Distention Extremities: No Pedal Edema. No: Increased Warmth Skin: Warm, Dry Psy/Mental Status: Alert, Normal Affect - Patient Data Lab Results Last 24 hrs: Laboratory Results - last 24 hr 02/03/21 02/03/21 02/03/21 Range/Units 23:35 23:35 23:35 WBC 13.8 H (4.5-11.0) K/uL RBC 4.77 (4.30-5.90) M/uL Hgb 13.9 (12.0-15.0) g/dL Hct 41.1 (40.0-54.0) % MCV 86 (80-98) fL MCH 29 (27-31) pg MCHC 34 (32-36) % Plt Count 207 (150-400) K/uL Neut % (Auto) 88.8 H (36-66) % Lymph % (Auto) 3.8 L (24-44) % [place] % (Auto) 7.2 H (2-6) % Eos % (Auto) 0.1 L (2-4) % Baso % (Auto) 0.1 (0-1) % Sodium 137 L (140-148) mmol/L Potassium 4.2 (3.6-5.2) mmol/L Chloride 100 (100-108) mmol/L Carbon Dioxide 26 (21-32) mmol/L Anion Gap 15.2 H (5.0-14.0) mmol/L BUN 38 H (7-18) mg/dL Creatinine 2.1 H (0.8-1.3) mg/dL Est Cr Clr Drug Dosing 46.21 mL/min Estimated GFR (MDRD) 33 L (>60) Glucose 255 H (74-106) mg/dL Lactic Acid 2.2 H (0.4-2.0) mmol/L Calcium 8.4 L (8.5-10.1) mg/dL Total Bilirubin 1.9 H (0.2-1.0) mg/dL Direct Bilirubin (0.0-0.2) mg/dL Indirect Bilirubin AST 1044 H (15-37) U/L ALT 993 H (12-78) U/L Alkaline Phosphatase 409 H (46-116) U/L Lactate Dehydrogenase (85-227) U/L Troponin I < 0.017 (0.000-0.056) ng/mL Total Protein 7.7 (6.4-8.2) g/dL Albumin 3.9 (3.4-5.0) g/dL Globulin 3.8 H (2.3-3.5) g/dL Albumin/Globulin Ratio 1.0 L (1.2-2.2) Amylase (25-115) U/L Lipase 88807 H (73-393) U/L Urine Color (YELLOW) Urine Appearance (CLEAR) Urine pH (5.0-8.0) Ur Specific [place] (1.008-1.030) Urine Protein (NEGATIVE) mg/dL Urine Glucose (UA) (NEGATIVE) mg/dL Urine Ketones (NEGATIVE) mg/dL Urine Occult Blood (NEGATIVE) Urine Nitrite (NEGATIVE) Urine Bilirubin (NEGATIVE) Urine Urobilinogen (0.2-1.0) EU/dL Ur Leukocyte Esterase (NEGATIVE) Urine RBC (0-5) Urine WBC (0-5) Ur Epithelial Cells Amorphous Sediment Urine Bacteria Urine Mucus Urine Opiates Screen (NEGATIVE) Ur Oxycodone Screen (NEGATIVE) Urine Methadone Screen (NEGATIVE) Ur Propoxyphene Screen (NEGATIVE) Ur Barbiturates Screen (NEGATIVE) Ur Tricyclics Screen (NEGATIVE) Ur Phencyclidine Scrn (NEGATIVE) Ur Amphetamine Screen (NEGATIVE) U Methamphetamines Scrn (NEGATIVE) Urine MDMA Screen (NEGATIVE) U Benzodiazepines Scrn (NEGATIVE) U Cocaine Metab Screen (NEGATIVE) U Marijuana (THC) Screen (NEGATIVE) Ethyl Alcohol mg/dL 02/04/21 02/04/21 02/04/21 Range/Units 00:25 00:29 05:00 WBC 16.2 H (4.5-11.0) K/uL RBC 4.61 (4.30-5.90) M/uL Hgb 13.3 (12.0-15.0) g/dL Hct 39.3 L (40.0-54.0) % MCV 85 (80-98) fL MCH 29 (27-31) pg MCHC 34 (32-36) % Plt Count 212 (150-400) K/uL Neut % (Auto) 85.7 H (36-66) % Lymph % (Auto) 7.2 L (24-44) % [place] % (Auto) 7.0 H (2-6) % Eos % (Auto) 0.0 L (2-4) % Baso % (Auto) 0.1 (0-1) % Sodium (140-148) mmol/L Potassium (3.6-5.2) mmol/L Chloride (100-108) mmol/L Carbon Dioxide (21-32) mmol/L Anion Gap (5.0-14.0) mmol/L BUN (7-18) mg/dL Creatinine (0.8-1.3) mg/dL Est Cr Clr Drug Dosing mL/min Estimated GFR (MDRD) (>60) Glucose (74-106) mg/dL Lactic Acid (0.4-2.0) mmol/L Calcium (8.5-10.1) mg/dL Total Bilirubin (0.2-1.0) mg/dL Direct Bilirubin (0.0-0.2) mg/dL Indirect Bilirubin AST (15-37) U/L ALT (12-78) U/L Alkaline Phosphatase (46-116) U/L Lactate Dehydrogenase 538 H (85-227) U/L Troponin I (0.000-0.056) ng/mL Total Protein (6.4-8.2) g/dL Albumin (3.4-5.0) g/dL Globulin (2.3-3.5) g/dL Albumin/Globulin Ratio (1.2-2.2) Amylase (25-115) U/L Lipase (73-393) U/L Urine Color (YELLOW) Urine Appearance (CLEAR) Urine pH (5.0-8.0) Ur Specific [place] (1.008-1.030) Urine Protein (NEGATIVE) mg/dL Urine Glucose (UA) (NEGATIVE) mg/dL Urine Ketones (NEGATIVE) mg/dL Urine Occult Blood (NEGATIVE) Urine Nitrite (NEGATIVE) Urine Bilirubin (NEGATIVE) Urine Urobilinogen (0.2-1.0) EU/dL Ur Leukocyte Esterase (NEGATIVE) Urine RBC (0-5) Urine WBC (0-5) Ur Epithelial Cells Amorphous Sediment Urine Bacteria Urine Mucus Urine Opiates Screen (NEGATIVE) Ur Oxycodone Screen (NEGATIVE) Urine Methadone Screen (NEGATIVE) Ur Propoxyphene Screen (NEGATIVE) Ur Barbiturates Screen (NEGATIVE) Ur Tricyclics Screen (NEGATIVE) Ur Phencyclidine Scrn (NEGATIVE) Ur Amphetamine Screen (NEGATIVE) U Methamphetamines Scrn (NEGATIVE) Urine MDMA Screen (NEGATIVE) U Benzodiazepines Scrn (NEGATIVE) U Cocaine Metab Screen (NEGATIVE) U Marijuana (THC) Screen (NEGATIVE) Ethyl Alcohol 7 mg/dL 02/04/21 02/04/21 02/04/21 Range/Units 05:00 07:55 07:55 WBC (4.5-11.0) K/uL RBC (4.30-5.90) M/uL Hgb (12.0-15.0) g/dL Hct (40.0-54.0) % MCV (80-98) fL MCH (27-31) pg MCHC (32-36) % Plt Count (150-400) K/uL Neut % (Auto) (36-66) % Lymph % (Auto) (24-44) % [place] % (Auto) (2-6) % Eos % (Auto) (2-4) % Baso % (Auto) (0-1) % Sodium 138 L (140-148) mmol/L Potassium 5.3 H (3.6-5.2) mmol/L Chloride 103 (100-108) mmol/L Carbon Dioxide 27 (21-32) mmol/L Anion Gap 13.3 (5.0-14.0) mmol/L BUN 35 H (7-18) mg/dL Creatinine 1.9 H (0.8-1.3) mg/dL Est Cr Clr Drug Dosing 51.07 mL/min Estimated GFR (MDRD) 37 L (>60) Glucose 141 H (74-106) mg/dL Lactic Acid (0.4-2.0) mmol/L Calcium 8.5 (8.5-10.1) mg/dL Total Bilirubin (0.2-1.0) mg/dL Direct Bilirubin (0.0-0.2) mg/dL Indirect Bilirubin AST (15-37) U/L ALT (12-78) U/L Alkaline Phosphatase (46-116) U/L Lactate Dehydrogenase (85-227) U/L Troponin I (0.000-0.056) ng/mL Total Protein (6.4-8.2) g/dL Albumin (3.4-5.0) g/dL Globulin (2.3-3.5) g/dL Albumin/Globulin Ratio (1.2-2.2) Amylase 4941 H (25-115) U/L Lipase 83820 H (73-393) U/L Urine Color Yellow (YELLOW) Urine Appearance Clear (CLEAR) Urine pH 6.0 (5.0-8.0) Ur Specific [place] 1.015 (1.008-1.030) Urine Protein 100 H (NEGATIVE) mg/dL Urine Glucose (UA) 500 H (NEGATIVE) mg/dL Urine Ketones Negative (NEGATIVE) mg/dL Urine Occult Blood Small H (NEGATIVE) Urine Nitrite Negative (NEGATIVE) Urine Bilirubin Negative (NEGATIVE) Urine Urobilinogen 0.2 (0.2-1.0) EU/dL Ur Leukocyte Esterase Negative (NEGATIVE) Urine RBC 5-10 H (0-5) Urine WBC 0-5 (0-5) Ur Epithelial Cells Rare Amorphous Sediment Few Urine Bacteria Few Urine Mucus Not seen Urine Opiates Screen Negative (NEGATIVE) Ur Oxycodone Screen Negative (NEGATIVE) Urine Methadone Screen Negative (NEGATIVE) Ur Propoxyphene Screen Negative (NEGATIVE) Ur Barbiturates Screen Negative (NEGATIVE) Ur Tricyclics Screen Negative (NEGATIVE) Ur Phencyclidine Scrn Negative (NEGATIVE) Ur Amphetamine Screen Negative (NEGATIVE) U Methamphetamines Scrn Negative (NEGATIVE) Urine MDMA Screen Negative (NEGATIVE) U Benzodiazepines Scrn Negative (NEGATIVE) U Cocaine Metab Screen Negative (NEGATIVE) U Marijuana (THC) Screen Negative (NEGATIVE) Ethyl Alcohol mg/dL 02/04/21 Range/Units 07:56 WBC (4.5-11.0) K/uL RBC (4.30-5.90) M/uL Hgb (12.0-15.0) g/dL Hct (40.0-54.0) % MCV (80-98) fL MCH (27-31) pg MCHC (32-36) % Plt Count (150-400) K/uL Neut % (Auto) (36-66) % Lymph % (Auto) (24-44) % [place] % (Auto) (2-6) % Eos % (Auto) (2-4) % Baso % (Auto) (0-1) % Sodium (140-148) mmol/L Potassium (3.6-5.2) mmol/L Chloride (100-108) mmol/L Carbon Dioxide (21-32) mmol/L Anion Gap (5.0-14.0) mmol/L BUN (7-18) mg/dL Creatinine (0.8-1.3) mg/dL Est Cr Clr Drug Dosing mL/min Estimated GFR (MDRD) (>60) Glucose (74-106) mg/dL Lactic Acid (0.4-2.0) mmol/L Calcium (8.5-10.1) mg/dL Total Bilirubin 1.3 H (0.2-1.0) mg/dL Direct Bilirubin 0.45 H (0.0-0.2) mg/dL Indirect Bilirubin 0.85 AST 614 H (15-37) U/L ALT 903 H (12-78) U/L Alkaline Phosphatase 358 H (46-116) U/L Lactate Dehydrogenase (85-227) U/L Troponin I (0.000-0.056) ng/mL Total Protein 7.1 (6.4-8.2) g/dL Albumin 3.5 (3.4-5.0) g/dL Globulin 3.6 H (2.3-3.5) g/dL Albumin/Globulin Ratio 1.0 L (1.2-2.2) Amylase (25-115) U/L Lipase (73-393) U/L Urine Color (YELLOW) Urine Appearance (CLEAR) Urine pH (5.0-8.0) Ur Specific [place] (1.008-1.030) Urine Protein (NEGATIVE) mg/dL Urine Glucose (UA) (NEGATIVE) mg/dL Urine Ketones (NEGATIVE) mg/dL Urine Occult Blood (NEGATIVE) Urine Nitrite (NEGATIVE) Urine Bilirubin (NEGATIVE) Urine Urobilinogen (0.2-1.0) EU/dL Ur Leukocyte Esterase (NEGATIVE) Urine RBC (0-5) Urine WBC (0-5) Ur Epithelial Cells Amorphous Sediment Urine Bacteria Urine Mucus Urine Opiates Screen (NEGATIVE) Ur Oxycodone Screen (NEGATIVE) Urine Methadone Screen (NEGATIVE) Ur Propoxyphene Screen (NEGATIVE) Ur Barbiturates Screen (NEGATIVE) Ur Tricyclics Screen (NEGATIVE) Ur Phencyclidine Scrn (NEGATIVE) Ur Amphetamine Screen (NEGATIVE) U Methamphetamines Scrn (NEGATIVE) Urine MDMA Screen (NEGATIVE) U Benzodiazepines Scrn (NEGATIVE) U Cocaine Metab Screen (NEGATIVE) U Marijuana (THC) Screen (NEGATIVE) Ethyl Alcohol mg/dL Result Diagrams: 02/04/21 05:00 02/04/21 05:00 Sepsis Event Note - Evaluation Sepsis Screening Result: No Definite Risk - Focused Exam Vital Signs: Vital Signs Temp Pulse Resp BP Pulse Ox 02/04/21 05:56 61 17 158/75 H 98 02/04/21 02:36 96 02/04/21 02:28 36.2 C 56 L 16 184/77 H 97 02/03/21 23:13 36.2 C 64 16 177/96 H 96 02/03/21 23:11 36.2 C 64 16 177/96 H 96 - Problem List Review Problem List Initiated/Reviewed/Updated: Yes - My Orders Last 24 Hours: My Active Orders 02/04/21 08:59 LORazepam [Ativan] 0.5 mg IVPUSH Q4H PRN Ondansetron [Zofran ODT] 4 mg PO Q6H PRN Ondansetron [Zofran] 4 mg IVPUSH Q4H PRN 06/29/21 09:02 fentaNYL [Sublimaze] 50 mcg IVPUSH Q2H PRN 02/04/21 14:00 cefTAZidime Pentahydrate [Fortaz] 1 gm Sodium Chloride 0.9% [Normal Saline] 50 ml IV Q8HR 02/05/21 05:00 CBC W/O DIFF,HEMOGRAM [HEME] Timed (1) COMPREHENSIVE METABOLIC PN,CMP [CHEM] Timed LIPASE [CHEM] Timed MAGNESIUM [CHEM] Timed 02/05/21 07:00 Cholangiopancreatography [MR] Routine 02/05/21 08:59 LORazepam [Ativan] 1 mg IVPUSH ONETIME ONE - Plan Plan:: ASSESSMENT AND PLAN - Acute Pancreatitis-suspect gallstone pancreatitis with significant cholelithiasi s as well as impressive elevation of AST, ALT and minor elevation of bilirubin. CT and ultrasound have been nondiagnostic. Pain is improving and lipase is coming down. -Continue IV fluids -NPO -Symptomatic management of pain and nausea -Repeat lipase and hepatic panel in the morning -MRCP in the morning Hyperglycemia-noted at the time of admission. No formal diagnosis of diabetes. -blood glucose checks before meals and at bedtime -low dose sliding scale History of Heroin addiction-reports was a daily user of IV heroin for 20 years, started Opiate Treatment Program at [place], [place]. May 2020 -reports Suboxone 12 mg sl daily dosing History of Alcohol dependence-reports drank 1 liter of Vodka and 1 case of beer daily "long time", stopped May 2020 -Continue outpatient Treatment Program Tobacco dependence -Encourage cessation -Nicotine patch 14 mg daily. Maintenance issues -Nutrition: NPO -Owen catheter not indicated at this time -DVT: SCD -GI; IV Protonix 40mg daily Disposition: I would anticipate discharge home unless he requires transfer to a higher level of care Omega Torre MD
--- NOTE | 2021-02-04 13:44 | US ---
Abdomen Comp CLINICAL HISTORY: Pancreatitis COMPARISON: CT earlier 02/04/2021. FINDINGS: The liver is free of mass. There is mild prominence of the intrahepatic biliary tree. Left lobe is obscured secondary to superimposed bowel gas. There is normal parenchymal echogenicity. The gallbladder shows moderate curvilinear echogenicity along the anterior wall. There is total shadowing posterior to this. This may represent a stone filled gallbladder.. The common duct measures 12 mm. The pancreas is obscured. Right kidney measures 10.0 x 4.7 x 4.8 cm. Cortical thickness is 1.5 cm. Left kidney is less than optimally seen. It measures 11.0 x 4.6 x 5.8 cm. Cortical thickness is 1.1 cm..The aorta is not aneurysmal. The inferior vena cava is obscured. The spleen has a normal configuration. IMPRESSION: Limited study due to significant bowel gas Known acute pancreatitis earlier demonstrated on CT Peripherally echogenic gallbladder with significant distal shadowing. This is most likely a stone filled gallbladder. Intrahepatic and common bile duct dilatation
[2021-02-04] MEDS: fentaNYL 100 MCG/2 ML SDV IVPUSH PRN (20:21)
[2021-02-05] MEDS: Sodium Chloride 0.9% 1,000 ML IV SCH ×2 (01:03→09:22)
[2021-02-05] MEDS: fentaNYL 100 MCG/2 ML SDV IVPUSH PRN ×4 (04:20→23:05)
[2021-02-05] MEDS: Pantoprazole 40 MG Vial IV SCH (08:03)
[2021-02-05] MEDS: Nicotine 14 MG/24 Hr Patch TRDERM SCH (08:04)
[2021-02-05] MEDS: Insulin Lispro 100 Unit/ML 3 ML KwikPen SUBCUT SCH (08:06)
[2021-02-05] MEDS ORDERED: LORazepam 2 MG/ML SDV IVPUSH ONE (08:59)
[2021-02-05] MEDS: Ondansetron 4 MG/2 ML SDV IVPUSH PRN ×2 (10:03→23:32)
--- NOTE | 2021-02-05 10:14 | PCM.PN ---
- General Info Date of Service: 02/05/21 Subjective Update: There were no acute events overnight. Patient reports increased abdominal pain as well as nausea this morning. He reports the sensation that his abdomen is full and has an achy pain. This is mostly centered around the epigastric area. He does not have an appetite. No diarrhea today but did have some yesterday. He did not have any fevers overnight. Lipase and hepatic panel numbers are all improved compared to yesterday. MRCP is still pending. Functional Status: Denies: Pain Controlled - Review of Systems Gastrointestinal: Reports: Nausea - Patient Data Vitals - Most Recent: Last Vital Signs Temp 36.6 C 02/05/21 08:00 Pulse 57 L 02/05/21 04:00 Resp 12 02/05/21 08:00 BP 144/74 H 02/05/21 08:00 Pulse Ox 96 02/05/21 08:00 Weight - Most Recent: 94.03 kg I&O - Last 24 Hours: Intake & Output 02/04/21 02/05/21 02/05/21 22:59 06:59 14:59 Intake Total 1985 1581 Output Total 550 Balance 1985 1031 Lab Results Last 24 Hours: Laboratory Results - last 24 hr 02/04/21 02/04/21 02/04/21 Range/Units 11:06 17:04 20:19 WBC (4.5-11.0) K/uL RBC (4.30-5.90) M/uL Hgb (12.0-15.0) g/dL Hct (40.0-54.0) % MCV (80-98) fL MCH (27-31) pg MCHC (32-36) % Plt Count (150-400) K/uL Sodium (140-148) mmol/L Potassium (3.6-5.2) mmol/L Chloride (100-108) mmol/L Carbon Dioxide (21-32) mmol/L Anion Gap (5.0-14.0) mmol/L BUN (7-18) mg/dL Creatinine (0.8-1.3) mg/dL Est Cr Clr Drug Dosing mL/min Estimated GFR (MDRD) (>60) Glucose (74-106) mg/dL POC Glucose 139 H 114 H 105 (74-106) mg/dL Calcium (8.5-10.1) mg/dL Magnesium (1.8-2.4) mg/dL Total Bilirubin (0.2-1.0) mg/dL AST (15-37) U/L ALT (12-78) U/L Alkaline Phosphatase (46-116) U/L Total Protein (6.4-8.2) g/dL Albumin (3.4-5.0) g/dL Globulin (2.3-3.5) g/dL Albumin/Globulin Ratio (1.2-2.2) Lipase (73-393) U/L 02/05/21 02/05/21 02/05/21 Range/Units 04:35 04:35 08:06 WBC 12.2 H (4.5-11.0) K/uL RBC 3.94 L (4.30-5.90) M/uL Hgb 11.4 L (12.0-15.0) g/dL Hct 34.4 L (40.0-54.0) % MCV 87 (80-98) fL MCH 29 (27-31) pg MCHC 33 (32-36) % Plt Count 183 (150-400) K/uL Sodium 142 (140-148) mmol/L Potassium 4.2 (3.6-5.2) mmol/L Chloride 108 (100-108) mmol/L Carbon Dioxide 23 (21-32) mmol/L Anion Gap 10.9 (5.0-14.0) mmol/L BUN 25 H (7-18) mg/dL Creatinine 1.6 H (0.8-1.3) mg/dL Est Cr Clr Drug Dosing 60.68 mL/min Estimated GFR (MDRD) 45 L (>60) Glucose 94 (74-106) mg/dL POC Glucose 96 (74-106) mg/dL Calcium 8.1 L (8.5-10.1) mg/dL Magnesium 2.6 H (1.8-2.4) mg/dL Total Bilirubin 1.0 (0.2-1.0) mg/dL AST 169 H (15-37) U/L ALT 458 H (12-78) U/L Alkaline Phosphatase 250 H (46-116) U/L Total Protein 6.1 L (6.4-8.2) g/dL Albumin 2.9 L (3.4-5.0) g/dL Globulin 3.2 (2.3-3.5) g/dL Albumin/Globulin Ratio 0.9 L (1.2-2.2) Lipase 9340 H (73-393) U/L Med Orders - Current: Current Medications Albuterol (Albuterol 0.083% 2.5 Mg/3 Ml Neb Soln) 2.5 mg NEB Q4H PRN PRN Reason: Shortness Of Breath/wheezing Fentanyl (Fentanyl 100 Mcg/2 Ml Sdv) 50 mcg IVPUSH Q2H PRN PRN Reason: Pain Last Admin: 02/05/21 10:06 Dose: 50 mcg Documented by: Sodium Chloride (Normal Saline) 1,000 mls @ 125 mls/hr IV ASDIRECTED [facility] Last Admin: 02/05/21 09:22 Dose: 125 mls/hr Documented by: Ceftazidime 1 gm/ Sodium (Chloride) 50 mls @ 100 mls/hr IV Q8H [facility] Last Admin: 02/05/21 10:07 Dose: 100 mls/hr Documented by: Lorazepam (Lorazepam 2 Mg/Ml Sdv) 0.5 mg IVPUSH Q4H PRN PRN Reason: Nausea Nicotine (Nicotine 14 Mg/24 Hr Patch) 14 mg TRDERM DAILY [facility] Last Admin: 02/05/21 08:04 Dose: 14 mg Documented by: Ondansetron HCl (Ondansetron 4 Mg Tab.Dis) 4 mg PO Q6H PRN PRN Reason: Nausea/Vomiting Ondansetron HCl (Ondansetron 4 Mg/2 Ml Sdv) 4 mg IVPUSH Q4H PRN PRN Reason: Nausea/Vomiting Last Admin: 02/05/21 10:03 Dose: 4 mg Documented by: Pantoprazole Sodium (Pantoprazole 40 Mg Vial) 40 mg IV DAILY [facility] Last Admin: 02/05/21 08:03 Dose: 40 mg Documented by: Sodium Chloride (Sodium Chloride 0.9% 10 Ml Syringe) 10 ml FLUSH ASDIRECTED PRN PRN Reason: Keep Vein Open Last Admin: 02/03/21 23:46 Dose: 10 ml Documented by: Discontinued Medications Fentanyl (Fentanyl 100 Mcg/2 Ml Sdv) 50 mcg IVPUSH ONETIME ONE Stop: 02/03/21 23:31 Last Admin: 02/03/21 23:46 Dose: 50 mcg Documented by: Fentanyl (Fentanyl 100 Mcg/2 Ml Sdv) 50 mcg IVPUSH ONETIME ONE Stop: 02/04/21 01:46 Last Admin: 02/04/21 01:57 Dose: 50 mcg Documented by: Fentanyl (Fentanyl 100 Mcg/2 Ml Sdv) 50 mcg IVPUSH Q6H PRN PRN Reason: Pain (severe 7-10) Last Admin: 02/04/21 09:00 Dose: 50 mcg Documented by: Lactated Ringer's (Ringers, Lactated) 1,000 mls @ 999 mls/hr IV ASDIRECTED [facility] Last Admin: 02/03/21 23:46 Dose: 999 mls/hr Documented by: Sodium Chloride (Normal Saline) 81 mls @ 4 mls/sec IV ASDIRECTED [facility] Stop: 02/04/21 00:04 Last Admin: 02/04/21 00:20 Dose: 4 mls/sec Documented by: Insulin Human Lispro (Insulin Lispro 100 Unit/Ml 3 Ml Kwikpen) 0 unit SUBCUT QIDACANDBED [facility]; Protocol Last Admin: 02/05/21 08:06 Dose: Not Given Documented by: Iopamidol (Iopamidol 612 Mg/Ml 150 Ml Bottle) 136 ml IV . DIRECTED STA Stop: 02/04/21 00:03 Last Admin: 02/04/21 00:20 Dose: 150 ml Documented by: Lorazepam (Lorazepam 2 Mg/Ml Sdv) 1 mg IVPUSH ONETIME ONE Stop: 02/05/21 09:00 - Exam Quality Assessment: No: Supplemental Oxygen General: Alert, Oriented, Cooperative, No Acute Distress Lungs: Normal Respiratory Effort Cardiovascular: Regular Rate, Regular Rhythm GI/Abdominal Exam: Soft, No Distention Extremities: No Pedal Edema Skin: Warm, Dry Psy/Mental Status: Alert, Normal Affect - Patient Data Lab Results Last 24 hrs: Laboratory Results - last 24 hr 02/04/21 02/04/21 02/04/21 Range/Units 11:06 17:04 20:19 WBC (4.5-11.0) K/uL RBC (4.30-5.90) M/uL Hgb (12.0-15.0) g/dL Hct (40.0-54.0) % MCV (80-98) fL MCH (27-31) pg MCHC (32-36) % Plt Count (150-400) K/uL Sodium (140-148) mmol/L Potassium (3.6-5.2) mmol/L Chloride (100-108) mmol/L Carbon Dioxide (21-32) mmol/L Anion Gap (5.0-14.0) mmol/L BUN (7-18) mg/dL Creatinine (0.8-1.3) mg/dL Est Cr Clr Drug Dosing mL/min Estimated GFR (MDRD) (>60) Glucose (74-106) mg/dL POC Glucose 139 H 114 H 105 (74-106) mg/dL Calcium (8.5-10.1) mg/dL Magnesium (1.8-2.4) mg/dL Total Bilirubin (0.2-1.0) mg/dL AST (15-37) U/L ALT (12-78) U/L Alkaline Phosphatase (46-116) U/L Total Protein (6.4-8.2) g/dL Albumin (3.4-5.0) g/dL Globulin (2.3-3.5) g/dL Albumin/Globulin Ratio (1.2-2.2) Lipase (73-393) U/L 02/05/21 02/05/21 02/05/21 Range/Units 04:35 04:35 08:06 WBC 12.2 H (4.5-11.0) K/uL RBC 3.94 L (4.30-5.90) M/uL Hgb 11.4 L (12.0-15.0) g/dL Hct 34.4 L (40.0-54.0) % MCV 87 (80-98) fL MCH 29 (27-31) pg MCHC 33 (32-36) % Plt Count 183 (150-400) K/uL Sodium 142 (140-148) mmol/L Potassium 4.2 (3.6-5.2) mmol/L Chloride 108 (100-108) mmol/L Carbon Dioxide 23 (21-32) mmol/L Anion Gap 10.9 (5.0-14.0) mmol/L BUN 25 H (7-18) mg/dL Creatinine 1.6 H (0.8-1.3) mg/dL Est Cr Clr Drug Dosing 60.68 mL/min Estimated GFR (MDRD) 45 L (>60) Glucose 94 (74-106) mg/dL POC Glucose 96 (74-106) mg/dL Calcium 8.1 L (8.5-10.1) mg/dL Magnesium 2.6 H (1.8-2.4) mg/dL Total Bilirubin 1.0 (0.2-1.0) mg/dL AST 169 H (15-37) U/L ALT 458 H (12-78) U/L Alkaline Phosphatase 250 H (46-116) U/L Total Protein 6.1 L (6.4-8.2) g/dL Albumin 2.9 L (3.4-5.0) g/dL Globulin 3.2 (2.3-3.5) g/dL Albumin/Globulin Ratio 0.9 L (1.2-2.2) Lipase 9340 H (73-393) U/L Result Diagrams: 02/05/21 04:35 02/05/21 04:35 Sepsis Event Note - Evaluation Sepsis Screening Result: No Definite Risk - Focused Exam Vital Signs: Vital Signs Temp Pulse Resp BP Pulse Ox 02/05/21 08:00 36.6 C 12 144/74 H 96 02/05/21 04:00 36.7 C 57 L 14 131/81 94 L 02/05/21 01:09 95 02/05/21 00:00 36.2 C 57 L 23 H 130/76 94 L - Problem List Review Problem List Initiated/Reviewed/Updated: Yes - My Orders Last 24 Hours: My Active Orders 02/04/21 10:00 [email or web address] Pentahydrate [Fortaz] 1 gm Sodium Chloride 0.9% [Normal Saline] 50 ml IV Q8H 02/05/21 07:00 Cholangiopancreatography [MR] Routine 02/05/21 09:46 Discontinue Telemetry Monitoring [Cardiac Monitoring Discontinue] [RC] Click to Edit 02/05/21 17:00 Dextrose 5%-Lactated Ringers with KCl 20 mEq @ 100 mL/Hr (1000 mL) Dextrose 5%- Lact Ringers w/KCl [D5 LR with 20 mEq KCl] 1,000 ml IV ASDIRECTED 02/06/21 05:00 CBC W/O DIFF,HEMOGRAM [HEME] Timed (1) COMPREHENSIVE METABOLIC PN,CMP [CHEM] Timed LIPASE [CHEM] Timed - Plan Plan:: ASSESSMENT AND PLAN - Acute Pancreatitis-suspect gallstone pancreatitis with significant cholelithiasis as well as impressive elevation of AST, ALT and minor elevation of bilirubin. CT and ultrasound have been nondiagnostic. Laboratory studies are improving but pain and nausea have increased today. MRCP is still pending. I wonder if maybe he passed a gallstone or has a gallstone and a ball/valve type situation. -Continue IV fluids -NPO -Symptomatic management of pain and nausea -Repeat lipase and hepatic panel in the morning -MRCP this afternoon Hyperglycemia-noted at the time of admission. Blood sugars have normalized. -Discontinue Accu-Cheks History of Heroin addiction-reports was a daily user of IV heroin for 20 years, started Opiate Treatment Program at [place], [place]. May 2020 -reports Suboxone 12 mg sl daily dosing History of Alcohol dependence-history of heavy use, sober since May 2020 -Continue outpatient Treatment Program Tobacco dependence -Encourage cessation -Nicotine patch 14 mg daily. Maintenance issues -Nutrition: NPO -Owen catheter not indicated at this time -DVT: SCD -GI; IV Protonix 40mg daily Disposition: I would anticipate discharge home unless he requires transfer to a higher level of care Omega Torre MD
[2021-02-05] MEDS: Dextrose 5%-Lact Ringers w/KCl 1,000 ML IV SCH (16:38)
--- NOTE | 2021-02-05 17:04 | CRLMR ---
For Patients: As a result of the Century Cures Act, medical imaging exams and procedure reports are released immediately into your electronic medical record. You may view this report before your referring provider. If you have questions, please contact your health care provider. INDICATION: Pancreatitis. Gallstones. Question common duct stone. TECHNIQUE: An MRCP, including 2D, 3D and maximum intensity projection imaging, was performed. COMPARISON: Abdomen ultrasound and abdomen/pelvis CT performed yesterday. FINDINGS: Motion artifact degrades multiple images. The common bile duct is smoothly marginated and measures up to 10 mm in diameter. There is no obvious common duct stone. The intrahepatic ducts are mildly enlarged and appear to branch and taper in a grossly normal fashion. The gallbladder is filled with tiny stones. The pancreatic duct is normal. Acute pancreatitis is again demonstrated. The liver, spleen, adrenal glands and kidneys are within normal limits. No bowel abnormality, lymphadenopathy or free fluid is demonstrated. IMPRESSION: 1. Common bile duct enlarged to 10 mm and intrahepatic ducts mildly enlarged with no ductal stone evident. 2. Gallbladder filled with tiny stones. 3. Acute pancreatitis. Dictated by Deuce Jarrett MD @ 02/05/2021 5:02:[address] Deuce Jarrett @ Feb 05 2021 5:02PM
[2021-02-05] MEDS: Sodium Chloride 0.9% 10 ML Syringe FLUSH PRN (19:51)
[2021-02-06] MEDS: Dextrose 5%-Lact Ringers w/KCl 1,000 ML IV SCH ×2 (03:20→13:51)
--- NOTE | 2021-02-06 09:04 | PCM.PN ---
- General Info Date of Service: 02/06/21 Subjective Update: There were no acute events overnight. Patient reports that his abdominal pain has improved some from yesterday. Pain is still present and he describes it as somewhere between mild and moderate. Still located in the epigastric area. He does not have significant nausea today. No fevers. Lipase has improved quite a bit from yesterday but remains elevated. Hepatic panel numbers have improved. Functional Status: Reports: Pain Controlled - Review of Systems General: Denies: Fever Gastrointestinal: Reports: Abdominal Pain. Denies: Nausea - Patient Data Vitals - Most Recent: Last Vital Signs Temp 36.3 C 02/06/21 03:10 Pulse 45 L 02/06/21 03:10 Resp 18 02/06/21 03:10 BP 146/66 H 02/06/21 03:10 Pulse Ox 96 02/06/21 03:10 Weight - Most Recent: 94.03 kg I&O - Last 24 Hours: Intake & Output 02/05/21 02/06/21 02/06/21 22:59 06:59 14:59 Intake Total 1030 1145 Output Total 800 675 Balance 230 470 Lab Results Last 24 Hours: Laboratory Results - last 24 hr 02/06/21 02/06/21 Range/Units 04:45 04:45 WBC 9.7 (4.5-11.0) K/uL RBC 3.88 L (4.30-5.90) M/uL Hgb 11.2 L (12.0-15.0) g/dL Hct 34.0 L (40.0-54.0) % MCV 88 (80-98) fL MCH 29 (27-31) pg MCHC 33 (32-36) % Plt Count 189 (150-400) K/uL Sodium 142 (140-148) mmol/L Potassium 4.1 (3.6-5.2) mmol/L Chloride 108 (100-108) mmol/L Carbon Dioxide 24 (21-32) mmol/L Anion Gap 10.3 (5.0-14.0) mmol/L BUN 22 H (7-18) mg/dL Creatinine 1.5 H (0.8-1.3) mg/dL Est Cr Clr Drug Dosing 64.72 mL/min Estimated GFR (MDRD) 49 L (>60) Glucose 123 H (74-106) mg/dL Calcium 8.1 L (8.5-10.1) mg/dL Total Bilirubin 0.6 (0.2-1.0) mg/dL AST 69 H (15-37) U/L ALT 304 H (12-78) U/L Alkaline Phosphatase 212 H (46-116) U/L Total Protein 6.1 L (6.4-8.2) g/dL Albumin 2.8 L (3.4-5.0) g/dL Globulin 3.3 (2.3-3.5) g/dL Albumin/Globulin Ratio 0.9 L (1.2-2.2) Lipase 5151 H (73-393) U/L Med Orders - Current: Current Medications Albuterol (Albuterol 0.083% 2.5 Mg/3 Ml Neb Soln) 2.5 mg NEB Q4H PRN PRN Reason: Shortness Of Breath/wheezing Fentanyl (Fentanyl 100 Mcg/2 Ml Sdv) 50 mcg IVPUSH Q2H PRN PRN Reason: Pain Last Admin: 02/05/21 23:05 Dose: 50 mcg Documented by: Ceftazidime 1 gm/ Sodium (Chloride) 50 mls @ 100 mls/hr IV Q8H [facility] Last Admin: 02/06/21 01:54 Dose: 100 mls/hr Documented by: Potassium Cl/Dextrose/Lact Ringer's (D5 Lr With 20 Meq Kcl) 1,000 mls @ 100 mls/hr IV ASDIRECTED [facility] Last Admin: 02/06/21 03:20 Dose: 100 mls/hr Documented by: Lorazepam (Lorazepam 2 Mg/Ml Sdv) 0.5 mg IVPUSH Q4H PRN PRN Reason: Nausea Nicotine (Nicotine 14 Mg/24 Hr Patch) 14 mg TRDERM DAILY [facility] Last Admin: 02/05/21 08:04 Dose: 14 mg Documented by: Non-Formulary Medication (Buprenorphine Hcl/Naloxone Hcl [Suboxone 12 Mg-3 Mg Sl Film]) 1 each SL DAILY [facility] Ondansetron HCl (Ondansetron 4 Mg Tab.Dis) 4 mg PO Q6H PRN PRN Reason: Nausea/Vomiting Ondansetron HCl (Ondansetron 4 Mg/2 Ml Sdv) 4 mg IVPUSH Q4H PRN PRN Reason: Nausea/Vomiting Last Admin: 02/05/21 23:32 Dose: 4 mg Documented by: Pantoprazole Sodium (Pantoprazole 40 Mg Vial) 40 mg IV DAILY [facility] Last Admin: 02/05/21 08:03 Dose: 40 mg Documented by: Sodium Chloride (Sodium Chloride 0.9% 10 Ml Syringe) 10 ml FLUSH ASDIRECTED PRN PRN Reason: Keep Vein Open Last Admin: 02/05/21 19:51 Dose: 10 ml Documented by: Discontinued Medications Fentanyl (Fentanyl 100 Mcg/2 Ml Sdv) 50 mcg IVPUSH ONETIME ONE Stop: 02/03/21 23:31 Last Admin: 02/03/21 23:46 Dose: 50 mcg Documented by: Fentanyl (Fentanyl 100 Mcg/2 Ml Sdv) 50 mcg IVPUSH ONETIME ONE Stop: 02/04/21 01:46 Last Admin: 02/04/21 01:57 Dose: 50 mcg Documented by: Fentanyl (Fentanyl 100 Mcg/2 Ml Sdv) 50 mcg IVPUSH Q6H PRN PRN Reason: Pain (severe 7-10) Last Admin: 02/04/21 09:00 Dose: 50 mcg Documented by: Lactated Ringer's (Ringers, Lactated) 1,000 mls @ 999 mls/hr IV ASDIRECTED [facility] Last Admin: 02/03/21 23:46 Dose: 999 mls/hr Documented by: Sodium Chloride (Normal Saline) 81 mls @ 4 mls/sec IV ASDIRECTED [facility] Stop: 02/04/21 00:04 Last Admin: 02/04/21 00:20 Dose: 4 mls/sec Documented by: Sodium Chloride (Normal Saline) 1,000 mls @ 125 mls/hr IV ASDIRECTED [facility] Stop: 02/05/21 16:59 Last Admin: 02/05/21 09:22 Dose: 125 mls/hr Documented by: Insulin Human Lispro (Insulin Lispro 100 Unit/Ml 3 Ml Kwikpen) 0 unit SUBCUT QIDACANDBED [facility]; Protocol Last Admin: 02/05/21 08:06 Dose: Not Given Documented by: Iopamidol (Iopamidol 612 Mg/Ml 150 Ml Bottle) 136 ml IV . DIRECTED STA Stop: 02/04/21 00:03 Last Admin: 02/04/21 00:20 Dose: 150 ml Documented by: Lorazepam (Lorazepam 2 Mg/Ml Sdv) 1 mg IVPUSH ONETIME ONE Stop: 02/05/21 09:00 Last Admin: 02/05/21 12:04 Dose: 1 mg Documented by: - Exam Quality Assessment: No: Supplemental Oxygen General: Alert, Oriented, Cooperative, No Acute Distress Lungs: Normal Respiratory Effort. No: Wheezing Cardiovascular: Regular Rate, Regular Rhythm GI/Abdominal Exam: Soft, No Distention Extremities: No Pedal Edema. No: Increased Warmth Skin: Warm, Dry Psy/Mental Status: Alert, Normal Affect - Patient Data Lab Results Last 24 hrs: Laboratory Results - last 24 hr 02/06/21 02/06/21 Range/Units 04:45 04:45 WBC 9.7 (4.5-11.0) K/uL RBC 3.88 L (4.30-5.90) M/uL Hgb 11.2 L (12.0-15.0) g/dL Hct 34.0 L (40.0-54.0) % MCV 88 (80-98) fL MCH 29 (27-31) pg MCHC 33 (32-36) % Plt Count 189 (150-400) K/uL Sodium 142 (140-148) mmol/L Potassium 4.1 (3.6-5.2) mmol/L Chloride 108 (100-108) mmol/L Carbon Dioxide 24 (21-32) mmol/L Anion Gap 10.3 (5.0-14.0) mmol/L BUN 22 H (7-18) mg/dL Creatinine 1.5 H (0.8-1.3) mg/dL Est Cr Clr Drug Dosing 64.72 mL/min Estimated GFR (MDRD) 49 L (>60) Glucose 123 H (74-106) mg/dL Calcium 8.1 L (8.5-10.1) mg/dL Total Bilirubin 0.6 (0.2-1.0) mg/dL AST 69 H (15-37) U/L ALT 304 H (12-78) U/L Alkaline Phosphatase 212 H (46-116) U/L Total Protein 6.1 L (6.4-8.2) g/dL Albumin 2.8 L (3.4-5.0) g/dL Globulin 3.3 (2.3-3.5) g/dL Albumin/Globulin Ratio 0.9 L (1.2-2.2) Lipase 5151 H (73-393) U/L Result Diagrams: 02/06/21 04:45 02/06/21 04:45 Sepsis Event Note - Evaluation Sepsis Screening Result: No Definite Risk - Focused Exam Vital Signs: Vital Signs Temp Pulse Resp BP Pulse Ox 02/06/21 03:10 36.3 C 45 L 18 146/66 H 96 02/05/21 23:04 36.4 C 56 L 18 147/72 H 96 - Problem List Review Problem List Initiated/Reviewed/Updated: Yes - My Orders Last 24 Hours: My Active Orders 02/05/21 17:00 Dextrose 5%-Lact Ringers w/KCl [D5 LR with 20 mEq KCl] 1,000 ml IV ASDIRECTED 02/06/21 09:15 Buprenorphine HCl/Naloxone HCl [Suboxone 12 mg-3 mg Sl Film] 1 each SL DAILY 02/07/21 05:00 COMPREHENSIVE METABOLIC PN,CMP [CHEM] Timed LIPASE [CHEM] Timed - Plan Plan:: ASSESSMENT AND PLAN - Acute Pancreatitis-suspect gallstone pancreatitis with significant cholelithiasis as well as impressive elevation of AST, ALT and minor elevation of bilirubin. CT and ultrasound have been nondiagnostic. MRCP did not show any stones in the common or cystic duct but did show a lot of stones in the gallbladder. I suspect that the patient passed a stone leading to hepatocellular and pancreatic injury. He is steadily improving. -Continue IV fluids -NPO with some ice chips -Symptomatic management of pain and nausea -Repeat lipase and hepatic panel in the morning -Surgical consultation to discuss cholecystectomy Hyperglycemia-noted at the time of admission. Blood sugars have normalized. -Discontinue Accu-Cheks History of Heroin addiction-reports was a daily user of IV heroin for 20 years, started Opiate Treatment Program at [place], [place]. May 2020 -Continue Suboxone 12 mg daily History of Alcohol dependence-history of heavy use, sober since May 2020 -Continue outpatient Treatment Program Tobacco dependence -Encourage cessation -Nicotine patch 14 mg daily. Maintenance issues -Nutrition: NPO -Owen catheter not indicated at this time -DVT: SCD -GI; IV Protonix 40mg daily Disposition: I would anticipate discharge home after the hospital stay Omega Torre MD
[2021-02-06] MEDS: Pantoprazole 40 MG Vial IV SCH (09:08)
[2021-02-06] MEDS: Nicotine 14 MG/24 Hr Patch TRDERM SCH (09:08)
[2021-02-06] MEDS: Buprenorphine/Naloxone 8-2 MG Tab.SL SL SCH (09:15)
[2021-02-07] MEDS: Dextrose 5%-Lact Ringers w/KCl 1,000 ML IV SCH (00:28)
[2021-02-07] MEDS: Nicotine 14 MG/24 Hr Patch TRDERM SCH (08:16)
[2021-02-07] MEDS: Pantoprazole 40 MG Vial IV SCH (08:16)
--- NOTE | 2021-02-07 08:52 | PCM.PN ---
- General Info Date of Service: 02/07/21 Subjective Update: There were no acute events overnight. The patient does not report any abdominal pain or nausea at this time. He is hungry. Lipase is down below 2000 today. V ital signs have all been stable. No fevers. AST, ALT and alkaline phosphatase continue to improve. Functional Status: Reports: Pain Controlled - Review of Systems General: Denies: Fever Gastrointestinal: Denies: Abdominal Pain - Patient Data Vitals - Most Recent: Last Vital Signs Temp 36.8 C 02/07/21 07:00 Pulse 60 02/07/21 07:00 Resp 16 02/07/21 07:00 BP 154/85 H 02/07/21 07:00 Pulse Ox 96 02/07/21 07:00 Weight - Most Recent: 94.03 kg I&O - Last 24 Hours: Intake & Output 02/06/21 02/07/21 02/07/21 22:59 06:59 14:59 Intake Total 1359 1152 Output Total 1350 1650 300 Balance 9 -498 -300 Lab Results Last 24 Hours: Laboratory Results - last 24 hr 02/07/21 Range/Units 04:15 Sodium 141 (140-148) mmol/L Potassium 4.4 (3.6-5.2) mmol/L Chloride 106 (100-108) mmol/L Carbon Dioxide 26 (21-32) mmol/L Anion Gap 8.8 (5.0-14.0) mmol/L BUN 15 (7-18) mg/dL Creatinine 1.5 H (0.8-1.3) mg/dL Est Cr Clr Drug Dosing 64.72 mL/min Estimated GFR (MDRD) 49 L (>60) Glucose 100 (74-106) mg/dL Calcium 8.2 L (8.5-10.1) mg/dL Total Bilirubin 0.5 (0.2-1.0) mg/dL AST 35 (15-37) U/L ALT 216 H (12-78) U/L Alkaline Phosphatase 190 H (46-116) U/L Total Protein 6.0 L (6.4-8.2) g/dL Albumin 2.7 L (3.4-5.0) g/dL Globulin 3.3 (2.3-3.5) g/dL Albumin/Globulin Ratio 0.8 L (1.2-2.2) Lipase 1768 H (73-393) U/L Med Orders - Current: Current Medications Albuterol (Albuterol 0.083% 2.5 Mg/3 Ml Neb Soln) 2.5 mg NEB Q4H PRN PRN Reason: Shortness Of Breath/wheezing Buprenorphine/Naloxone (Buprenorphine/Naloxone 8-2 Mg Tab.Sl) 1.5 tab SL DAILY [facility] Last Admin: 02/06/21 09:15 Dose: 1.5 tab Documented by: Ropivacaine 47 ml/Dexamethasone 8 mg/Epinephrine HCl 0.4 mg/ Sodium Chloride 30.6 ml 0 ml NERVRT ASDIRECTED [facility] Fentanyl (Fentanyl 100 Mcg/2 Ml Sdv) 50 mcg IVPUSH Q2H PRN PRN Reason: Pain Last Admin: 02/05/21 23:05 Dose: 50 mcg Documented by: Lorazepam (Lorazepam 2 Mg/Ml Sdv) 0.5 mg IVPUSH Q4H PRN PRN Reason: Nausea Nicotine (Nicotine 14 Mg/24 Hr Patch) 14 mg TRDERM DAILY [facility] Last Admin: 02/07/21 08:16 Dose: 14 mg Documented by: Ondansetron HCl (Ondansetron 4 Mg Tab.Dis) 4 mg PO Q6H PRN PRN Reason: Nausea/Vomiting Ondansetron HCl (Ondansetron 4 Mg/2 Ml Sdv) 4 mg IVPUSH Q4H PRN PRN Reason: Nausea/Vomiting Last Admin: 02/05/21 23:32 Dose: 4 mg Documented by: Pantoprazole Sodium (Pantoprazole 40 Mg Vial) 40 mg IV DAILY [facility] Last Admin: 02/07/21 08:16 Dose: 40 mg Documented by: Sodium Chloride (Sodium Chloride 0.9% 10 Ml Syringe) 10 ml FLUSH ASDIRECTED PRN PRN Reason: Keep Vein Open Last Admin: 02/05/21 19:51 Dose: 10 ml Documented by: Discontinued Medications Fentanyl (Fentanyl 100 Mcg/2 Ml Sdv) 50 mcg IVPUSH ONETIME ONE Stop: 02/03/21 23:31 Last Admin: 02/03/21 23:46 Dose: 50 mcg Documented by: Fentanyl (Fentanyl 100 Mcg/2 Ml Sdv) 50 mcg IVPUSH ONETIME ONE Stop: 02/04/21 01:46 Last Admin: 02/04/21 01:57 Dose: 50 mcg Documented by: Fentanyl (Fentanyl 100 Mcg/2 Ml Sdv) 50 mcg IVPUSH Q6H PRN PRN Reason: Pain (severe 7-10) Last Admin: 02/04/21 09:00 Dose: 50 mcg Documented by: Lactated Ringer's (Ringers, Lactated) 1,000 mls @ 999 mls/hr IV ASDIRECTED [facility] Last Admin: 02/03/21 23:46 Dose: 999 mls/hr Documented by: Sodium Chloride (Normal Saline) 81 mls @ 4 mls/sec IV ASDIRECTED [facility] Stop: 02/04/21 00:04 Last Admin: 02/04/21 00:20 Dose: 4 mls/sec Documented by: Sodium Chloride (Normal Saline) 1,000 mls @ 125 mls/hr IV ASDIRECTED [facility] Stop: 02/05/21 16:59 Last Admin: 02/05/21 09:22 Dose: 125 mls/hr Documented by: Ceftazidime 1 gm/ Sodium (Chloride) 50 mls @ 100 mls/hr IV Q8H [facility] Last Admin: 02/07/21 02:44 Dose: 100 mls/hr Documented by: Potassium Cl/Dextrose/Lact Ringer's (D5 Lr With 20 Meq Kcl) 1,000 mls @ 100 mls/hr IV ASDIRECTED [facility] Last Admin: 02/07/21 00:28 Dose: 100 mls/hr Documented by: Insulin Human Lispro (Insulin Lispro 100 Unit/Ml 3 Ml Kwikpen) 0 unit SUBCUT QIDACANDBED [facility]; Protocol Last Admin: 02/05/21 08:06 Dose: Not Given Documented by: Iopamidol (Iopamidol 612 Mg/Ml 150 Ml Bottle) 136 ml IV . DIRECTED STA Stop: 02/04/21 00:03 Last Admin: 02/04/21 00:20 Dose: 150 ml Documented by: Lorazepam (Lorazepam 2 Mg/Ml Sdv) 1 mg IVPUSH ONETIME ONE Stop: 02/05/21 09:00 Last Admin: 02/05/21 12:04 Dose: 1 mg Documented by: - Exam Quality Assessment: No: Supplemental Oxygen General: Alert, Oriented, Cooperative, No Acute Distress Lungs: Normal Respiratory Effort GI/Abdominal Exam: Soft, No Distention Extremities: No Pedal Edema Skin: Warm, Dry Psy/Mental Status: Alert, Normal Affect - Patient Data Lab Results Last 24 hrs: Laboratory Results - last 24 hr 02/07/21 Range/Units 04:15 Sodium 141 (140-148) mmol/L Potassium 4.4 (3.6-5.2) mmol/L Chloride 106 (100-108) mmol/L Carbon Dioxide 26 (21-32) mmol/L Anion Gap 8.8 (5.0-14.0) mmol/L BUN 15 (7-18) mg/dL Creatinine 1.5 H (0.8-1.3) mg/dL Est Cr Clr Drug Dosing 64.72 mL/min Estimated GFR (MDRD) 49 L (>60) Glucose 100 (74-106) mg/dL Calcium 8.2 L (8.5-10.1) mg/dL Total Bilirubin 0.5 (0.2-1.0) mg/dL AST 35 (15-37) U/L ALT 216 H (12-78) U/L Alkaline Phosphatase 190 H (46-116) U/L Total Protein 6.0 L (6.4-8.2) g/dL Albumin 2.7 L (3.4-5.0) g/dL Globulin 3.3 (2.3-3.5) g/dL Albumin/Globulin Ratio 0.8 L (1.2-2.2) Lipase 1768 H (73-393) U/L Result Diagrams: 02/06/21 04:45 02/07/21 04:15 Sepsis Event Note - Evaluation Sepsis Screening Result: No Definite Risk - Focused Exam Vital Signs: Vital Signs Temp Pulse Resp BP Pulse Ox 02/07/21 07:00 36.8 C 60 16 154/85 H 96 02/07/21 04:00 36.4 C 54 L 16 139/85 98 02/06/21 23:14 36.7 C 54 L 16 122/86 98 - Problem List Review Problem List Initiated/Reviewed/Updated: Yes - My Orders Last 24 Hours: My Active Orders 02/06/21 09:00 Buprenorphine/Naloxone [Buprenorphine-Naloxone 8 MG-2 MG] 1.5 tab SL DAILY 02/06/21 10:56 Consult to Physician [CONS] Routine 02/06/21 10:57 Notify Provider Consults [RC] ASDIRECTED 02/07/21 Breakfast Clear Liquid Diet [DIET] 02/07/21 08:50 Convert IV to Saline Lock [OM.PC] Routine 02/07/21 Dinner NPO After Midnight [Nothing per Oral After Midnight Diet] [DIET] 02/08/21 05:00 CBC W/O DIFF,HEMOGRAM [HEME] Timed (1) COMPREHENSIVE METABOLIC PN,CMP [CHEM] Timed LIPASE [CHEM] Timed - Plan Plan:: ASSESSMENT AND PLAN - Acute Pancreatitis-suspect gallstone pancreatitis with significant minal lithiasis as well as impressive elevation of AST, ALT and minor elevation of bilirubin. CT and ultrasound have been nondiagnostic. MRCP did not show any stones in the common or cystic duct but did show a lot of stones in the gallbladder. Ongoing improvement. Cholecystectomy planned for tomorrow. -Saline lock IV -Clear liquids -Symptomatic management of pain and nausea -Repeat lipase and hepatic panel in the morning -Surgical consultation appreciated, cholecystectomy planned tomorrow Hyperglycemia-noted at the time of admission. Blood sugars have normalized. -Discontinue Accu-Cheks History of Heroin addiction-reports was a daily user of IV heroin for 20 years, started Opiate Treatment Program at [place], [place]. May 2020 -Continue Suboxone 12 mg daily History of Alcohol dependence-history of heavy use, sober since May 2020 -Continue outpatient Treatment Program Tobacco dependence -Encourage cessation -Nicotine patch 14 mg daily. Maintenance issues -Nutrition: Clear liquids -Owen catheter not indicated at this time -DVT: SCD -GI; IV Protonix 40mg daily Disposition: I would anticipate discharge home after the hospital stay Omega Torre MD
[2021-02-07] MEDS ORDERED: Acetaminophen 325 MG Tab PO PRN (09:08)
[2021-02-07] MEDS ORDERED: oxyCODONE 5 MG Tab PO PRN (09:08)
[2021-02-07] MEDS: Buprenorphine/Naloxone 8-2 MG Tab.SL SL SCH (09:29)
--- NOTE | 2021-02-07 16:03 | CONS ---
DATE OF SERVICE: 02/07/2021 REFERRING PHYSICIAN: CONSULTING PHYSICIAN: Michael Oliver MD REASON FOR CONSULTATION: Abdominal pain. HISTORY OF PRESENT ILLNESS: A 55-year-old male who was admitted few days ago via the emergency room for epigastric pain. This was fairly progressive and developed sharply over 24 hours. This was made worse by eating. The patient is noted to have significant lab abnormalities including a bilirubin of 2.2, AST of a 1044, and AST of 993. PAST MEDICAL HISTORY: Hypertension, gastritis, GERD, and history of STDs. SOCIAL HISTORY: He is a smoker. FAMILY HISTORY: Noncontributory. REVIEW OF SYSTEMS: GENERAL: Appropriate for condition. HEENT: Wears glasses. PULMONARY: No shortness of breath. CARDIOVASCULAR: No chest pain. GASTROINTESTINAL: As above. GENITOURINARY: No dysuria. MUSCULOSKELETAL: No symptoms. SKIN: No reported jaundice. NEUROLOGICAL: No symptoms. PSYCHIATRIC: No symptoms. The remainder review of systems was reviewed and is negative. PHYSICAL EXAMINATION: VITAL SIGNS: Temperature 98.2, blood pressure 146/91, pulse 74, respirations 16, and 97% on room air. GENERAL: The patient is resting comfortably. HEENT: Pupils are equal. NECK: Supple. LUNGS: Clear. CARDIOVASCULAR: Regular rhythm and rate. ABDOMEN: Mild pain with palpation of right lower quadrant. EXTREMITIES: Full range of motion. NEUROLOGICAL: Oriented x3. PSYCHIATRIC: No gross depression. IMAGING: I did review this, the ultrasound shows cholelithiasis. The MRCP, which I did review the radiology interpretation; no ductal stones, pancreatitis. ASSESSMENT/PLAN: Most likely the etiology of the patient's pain and lab abnormalities is gallstone pancreatitis. The patient has improved significantly with respect to his pancreatitis. Therefore, we will evaluate for probable laparoscopic cholecystectomy in the next 48 hours. The patient and I discussed risks, benefits, alternatives, and limitations including but not limited to infection, bleeding, cystic duct leaks, common bile duct injuries, possibility of open surgery, and other risks not listed here. The patient understands these risks and wishes to proceed. Michael Oliver MD /[id number]
[2021-02-08] MEDS ORDERED: Bupivacaine 0.5% 50 ML MDV ONE (06:55)
[2021-02-08] MEDS ORDERED: Lidocaine 1% with EPINEPHrine 1:100,000 50 ML MDV ONE (06:56)
[2021-02-08] MEDS ORDERED: Glycopyrrolate 0.2 MG/ML 5 ML MDV ONE (07:55)
[2021-02-08] MEDS ORDERED: Rocuronium 50 MG/5 ML Vial ONE (07:55)
[2021-02-08] MEDS ORDERED: Propofol 200 MG/20 ML SDV ONE (07:55)
[2021-02-08] MEDS ORDERED: Neostigmine Methylsulfate 1 MG/ML 5 ML Syringe ONE (07:55)
[2021-02-08] MEDS ORDERED: fentaNYL 250 MCG/5 ML SDV ONE ×2 (07:55→08:35)
[2021-02-08] MEDS ORDERED: Dexamethasone 4 MG/ML SDV ONE (07:55)
[2021-02-08] MEDS ORDERED: Ondansetron 4 MG/2 ML SDV ONE (07:55)
[2021-02-08] MEDS ORDERED: ceFAZolin 2 GM in Premix Bag 1 BAG IV ONE (08:00)
[2021-02-08] MEDS ORDERED: Acetaminophen/HYDROcodone 325-5 MG Tab PO PRN (08:15)
[2021-02-08] MEDS ORDERED: Benzocaine/Cetylpyridinium/Menthol Lozenge MUCMEM PRN (08:15)
[2021-02-08] MEDS ORDERED: hydrOXYzine HCL 100 MG/2 ML SDV IM PRN (08:15)
[2021-02-08] MEDS ORDERED: Docusate Sodium 100 MG Cap PO PRN (08:15)
[2021-02-08] MEDS ORDERED: Zolpidem 5 MG Tab PO PRN (08:15)
[2021-02-08] MEDS: metroNIDAZOLE/Normal Saline 500 MG in Premix Bag 1 BAG IV ONE ×2 (08:17→11:18)
[2021-02-08] MEDS ORDERED: Sugammadex Sodium 200 MG/2 ML VIAL ONE (08:57)
[2021-02-08] MEDS: Ondansetron 4 MG/2 ML SDV IVPUSH PRN (09:50)
[2021-02-08] MEDS: Nicotine 14 MG/24 Hr Patch TRDERM SCH (09:51)
[2021-02-08] MEDS: Buprenorphine/Naloxone 8-2 MG Tab.SL SL SCH (10:58)
--- NOTE | 2021-02-08 12:08 | PCM.PN ---
- General Info Date of Service: 02/08/21 Subjective Update: There were no acute events overnight. Abdominal pain had resolved. Patient is hungry. He had an uneventful laparoscopic cholecystectomy this morning. He is complaining of some surgical pain as well as nausea but these are getting better. Lipase has nearly normalized. Vitals have all been stable. Functional Status: Reports: Pain Controlled, Tolerating Diet - Patient Data Vitals - Most Recent: Last Vital Signs Temp 36.5 C 02/08/21 11:42 Pulse 87 02/08/21 11:42 Resp 16 02/08/21 11:42 BP 128/64 02/08/21 11:42 Pulse Ox 96 02/08/21 11:42 Weight - Most Recent: 94.03 kg I&O - Last 24 Hours: Intake & Output 02/07/21 02/08/21 02/08/21 22:59 06:59 14:59 Intake Total 400 Output Total 75 Balance 400 -75 Lab Results Last 24 Hours: Laboratory Results - last 24 hr 02/08/21 02/08/21 Range/Units 04:45 04:45 WBC 7.3 (4.5-11.0) K/uL RBC 4.17 L (4.30-5.90) M/uL Hgb 12.0 (12.0-15.0) g/dL Hct 36.5 L (40.0-54.0) % MCV 88 (80-98) fL MCH 29 (27-31) pg MCHC 33 (32-36) % Plt Count 223 (150-400) K/uL Sodium 142 (140-148) mmol/L Potassium 5.0 (3.6-5.2) mmol/L Chloride 107 (100-108) mmol/L Carbon Dioxide 29 (21-32) mmol/L Anion Gap 6.2 (5.0-14.0) mmol/L BUN 11 (7-18) mg/dL Creatinine 1.5 H (0.8-1.3) mg/dL Est Cr Clr Drug Dosing 64.72 mL/min Estimated GFR (MDRD) 49 L (>60) Glucose 83 (74-106) mg/dL Calcium 8.4 L (8.5-10.1) mg/dL Total Bilirubin 0.6 (0.2-1.0) mg/dL AST 29 (15-37) U/L ALT 176 H (12-78) U/L Alkaline Phosphatase 189 H (46-116) U/L Total Protein 6.4 (6.4-8.2) g/dL Albumin 2.9 L (3.4-5.0) g/dL Globulin 3.5 (2.3-3.5) g/dL Albumin/Globulin Ratio 0.8 L (1.2-2.2) Lipase 808 H (73-393) U/L Med Orders - Current: Current Medications Acetaminophen (Acetaminophen 325 Mg Tab) 650 mg PO Q4H PRN PRN Reason: Pain/Fever Hydrocodone Bitart/Acetaminophen (Acetaminophen/Hydrocodone 325-5 Mg Tab) 1 - 2 tab PO Q4H PRN PRN Reason: Pain Last Admin: 02/08/21 09:50 Dose: 2 tab Documented by: Albuterol (Albuterol 0.083% 2.5 Mg/3 Ml Neb Soln) 2.5 mg NEB Q4H PRN PRN Reason: Shortness Of Breath/wheezing Benzocaine/Menthol (Benzocaine/Cetylpyridinium/Menthol Lozenge) 1 lozenge MUCMEM Q4H PRN PRN Reason: Sore Throat Buprenorphine/Naloxone (Buprenorphine/Naloxone 8-2 Mg Tab.Sl) 1.5 tab SL DAILY [facility] Last Admin: 02/08/21 10:58 Dose: Not Given Documented by: Docusate Sodium (Docusate Sodium 100 Mg Cap) 100 mg PO BID PRN PRN Reason: Constipation Fentanyl (Fentanyl 100 Mcg/2 Ml Sdv) 50 mcg IVPUSH Q2H PRN PRN Reason: Pain (severe 7-10) Last Admin: 02/05/21 23:05 Dose: 50 mcg Documented by: Hydroxyzine HCl (Hydroxyzine Hcl 100 Mg/2 Ml Sdv) 100 mg IM Q4H PRN PRN Reason: Breakthrough Pain Lorazepam (Lorazepam 2 Mg/Ml Sdv) 0.5 mg IVPUSH Q4H PRN PRN Reason: Nausea Nicotine (Nicotine 14 Mg/24 Hr Patch) 14 mg TRDERM DAILY [facility] Last Admin: 02/08/21 09:51 Dose: 14 mg Documented by: Ondansetron HCl (Ondansetron 4 Mg Tab.Dis) 4 mg PO Q6H PRN PRN Reason: Nausea/Vomiting Ondansetron HCl (Ondansetron 4 Mg/2 Ml Sdv) 4 mg IVPUSH Q4H PRN PRN Reason: Nausea/Vomiting Last Admin: 02/08/21 09:50 Dose: 4 mg Documented by: Oxycodone HCl (Oxycodone 5 Mg Tab) 5 - 10 mg PO Q4H PRN PRN Reason: Pain Sodium Chloride (Sodium Chloride 0.9% 10 Ml Syringe) 10 ml FLUSH ASDIRECTED PRN PRN Reason: Keep Vein Open Last Admin: 02/05/21 19:51 Dose: 10 ml Documented by: Zolpidem Tartrate (Zolpidem 5 Mg Tab) 5 mg PO BEDTIME PRN PRN Reason: Sleep Discontinued Medications Bupivacaine HCl (Bupivacaine 0.5% 50 Ml Mdv) Confirm Administered Dose 50 ml .ROUTE .STK-MED ONE Stop: 02/08/21 06:56 Last Admin: 02/08/21 08:25 Dose: 10 ml Documented by: Ropivacaine 47 ml/Dexamethasone 8 mg/Epinephrine HCl 0.4 mg/ Sodium Chloride 30.6 ml 0 ml NERVRT ASDIRECTED [facility] Last Admin: 02/08/21 08:17 Dose: 80 syringe Documented by: Dexamethasone (Dexamethasone 4 Mg/Ml Sdv) Confirm Administered Dose 4 mg .ROUTE .STK-MED ONE Stop: 02/08/21 07:56 Fentanyl (Fentanyl 100 Mcg/2 Ml Sdv) 50 mcg IVPUSH ONETIME ONE Stop: 02/03/21 23:31 Last Admin: 02/03/21 23:46 Dose: 50 mcg Documented by: Fentanyl (Fentanyl 100 Mcg/2 Ml Sdv) 50 mcg IVPUSH ONETIME ONE Stop: 02/04/21 01:46 Last Admin: 02/04/21 01:57 Dose: 50 mcg Documented by: Fentanyl (Fentanyl 100 Mcg/2 Ml Sdv) 50 mcg IVPUSH Q6H PRN PRN Reason: Pain (severe 7-10) Last Admin: 02/04/21 09:00 Dose: 50 mcg Documented by: Fentanyl (Fentanyl 250 Mcg/5 Ml Sdv) Confirm Administered Dose 250 mcg .ROUTE .STK-MED ONE Stop: 02/08/21 07:56 Fentanyl (Fentanyl 250 Mcg/5 Ml Sdv) Confirm Administered Dose 250 mcg .ROUTE .STK-MED ONE Stop: 02/08/21 08:36 Glycopyrrolate (Glycopyrrolate 0.2 Mg/Ml 5 Ml Mdv) Confirm Administered Dose 1 mg .ROUTE .STK-MED ONE Stop: 02/08/21 07:56 Lactated Ringer's (Ringers, Lactated) 1,000 mls @ 999 mls/hr IV ASDIRECTED [facility] Last Admin: 02/03/21 23:46 Dose: 999 mls/hr Documented by: Sodium Chloride (Normal Saline) 81 mls @ 4 mls/sec IV ASDIRECTED [facility] Stop: 02/04/21 00:04 Last Admin: 02/04/21 00:20 Dose: 4 mls/sec Documented by: Sodium Chloride (Normal Saline) 1,000 mls @ 125 mls/hr IV ASDIRECTED [facility] Stop: 02/05/21 16:59 Last Admin: 02/05/21 09:22 Dose: 125 mls/hr Documented by: Ceftazidime 1 gm/ Sodium (Chloride) 50 mls @ 100 mls/hr IV Q8H [facility] Last Admin: 02/07/21 02:44 Dose: 100 mls/hr Documented by: Potassium Cl/Dextrose/Lact Ringer's (D5 Lr With 20 Meq Kcl) 1,000 mls @ 100 mls/hr IV ASDIRECTED [facility] Last Admin: 02/07/21 00:28 Dose: 100 mls/hr Documented by: Metronidazole 500 mg/ Premix 100 mls @ 100 mls/hr IV ONETIME ONE Stop: 02/08/21 08:59 Last Admin: 02/08/21 11:18 Dose: Not Given Documented by: Cefazolin Sodium/Dextrose 2 gm (/ Premix) 50 mls @ 100 mls/hr IV ONETIME ONE Stop: 02/08/21 08:29 Last Admin: 02/08/21 08:17 Dose: 100 mls/hr Documented by: Insulin Human Lispro (Insulin Lispro 100 Unit/Ml 3 Ml Kwikpen) 0 unit SUBCUT QIDACANDBED [facility]; Protocol Last Admin: 02/05/21 08:06 Dose: Not Given Documented by: Iopamidol (Iopamidol 612 Mg/Ml 150 Ml Bottle) 136 ml IV . DIRECTED STA Stop: 02/04/21 00:03 Last Admin: 02/04/21 00:20 Dose: 150 ml Documented by: Lidocaine/Epinephrine (Lidocaine 1% With Epinephrine 1:100,000 50 Ml Mdv) Confirm Administered Dose 50 ml .ROUTE .STK-MED ONE Stop: 02/08/21 06:57 Last Admin: 02/08/21 08:26 Dose: 10 ml Documented by: Lorazepam (Lorazepam 2 Mg/Ml Sdv) 1 mg IVPUSH ONETIME ONE Stop: 02/05/21 09:00 Last Admin: 02/05/21 12:04 Dose: 1 mg Documented by: Neostigmine Methylsulfate (Neostigmine Methylsulfate 1 Mg/Ml 5 Ml Syringe) C onfirm Administered Dose 5 mg .ROUTE .STK-MED ONE Stop: 02/08/21 07:56 Ondansetron HCl (Ondansetron 4 Mg/2 Ml Sdv) Confirm Administered Dose 4 mg .ROUTE .STK-MED ONE Stop: 02/08/21 07:56 Pantoprazole Sodium (Pantoprazole 40 Mg Vial) 40 mg IV DAILY [facility] Stop: 02/07/21 12:00 Last Admin: 02/07/21 08:16 Dose: 40 mg Documented by: Propofol (Propofol 200 Mg/20 Ml Sdv) Confirm Administered Dose 200 mg .ROUTE .STK-MED ONE Stop: 02/08/21 07:56 Rocuronium Mize (Rocuronium 50 Mg/5 Ml Vial) Confirm Administered Dose 50 mg .ROUTE .STK-MED ONE Stop: 02/08/21 07:56 Sugammadex Sodium (Sugammadex Sodium 200 Mg/2 Ml Vial) Confirm Administered Dose 200 mg .ROUTE .STK-MED ONE Stop: 02/08/21 08:58 - Exam Quality Assessment: No: Supplemental Oxygen General: Alert, Oriented, Cooperative, No Acute Distress Lungs: Normal Respiratory Effort GI/Abdominal Exam: Soft, No Distention Extremities: No Pedal Edema Skin: Warm, Dry Psy/Mental Status: Alert, Normal Affect - Patient Data Lab Results Last 24 hrs: Laboratory Results - last 24 hr 02/08/21 02/08/21 Range/Units 04:45 04:45 WBC 7.3 (4.5-11.0) K/uL RBC 4.17 L (4.30-5.90) M/uL Hgb 12.0 (12.0-15.0) g/dL Hct 36.5 L (40.0-54.0) % MCV 88 (80-98) fL MCH 29 (27-31) pg MCHC 33 (32-36) % Plt Count 223 (150-400) K/uL Sodium 142 (140-148) mmol/L Potassium 5.0 (3.6-5.2) mmol/L Chloride 107 (100-108) mmol/L Carbon Dioxide 29 (21-32) mmol/L Anion Gap 6.2 (5.0-14.0) mmol/L BUN 11 (7-18) mg/dL Creatinine 1.5 H (0.8-1.3) mg/dL Est Cr Clr Drug Dosing 64.72 mL/min Estimated GFR (MDRD) 49 L (>60) Glucose 83 (74-106) mg/dL Calcium 8.4 L (8.5-10.1) mg/dL Total Bilirubin 0.6 (0.2-1.0) mg/dL AST 29 (15-37) U/L ALT 176 H (12-78) U/L Alkaline Phosphatase 189 H (46-116) U/L Total Protein 6.4 (6.4-8.2) g/dL Albumin 2.9 L (3.4-5.0) g/dL Globulin 3.5 (2.3-3.5) g/dL Albumin/Globulin Ratio 0.8 L (1.2-2.2) Lipase 808 H (73-393) U/L Result Diagrams: 02/08/21 04:45 02/08/21 04:45 Sepsis Event Note - Evaluation Sepsis Screening Result: No Definite Risk - Focused Exam Vital Signs: Vital Signs Temp Temp Pulse Resp BP Pulse Ox 02/08/21 11:42 36.5 C 87 16 128/64 96 02/08/21 11:27 75 18 126/49 L 95 02/08/21 11:15 36.6 C 77 15 127/72 95 02/08/21 10:45 36.8 C 77 14 156/86 H 95 02/08/21 10:30 36.8 C 60 16 145/79 H 93 L 02/08/21 10:15 36.7 C 58 L 16 145/80 H 95 02/08/21 10:00 36.7 C 59 L 14 155/78 H 96 02/08/21 09:45 36.7 C 67 16 161/69 H 94 L 02/08/21 09:35 36.3 C 69 16 157/90 H 96 02/08/21 09:30 73 16 160/80 H 96 02/08/21 09:25 73 16 157/86 H 94 L 02/08/21 09:20 36.3 C 77 16 155/75 H 97 02/08/21 09:15 70 16 156/77 H 95 02/08/21 09:10 81 16 163/79 H 97 02/08/21 09:05 36.1 C 77 16 160/82 H 97 02/08/21 07:00 36.3 C 63 14 118/74 02/08/21 05:42 36.8 C 53 L 18 118/74 - Problem List & Annotations (1) Acute gallstone pancreatitis SNOMED Code(s): 191349816 Code(s): K85.10 - BILIARY ACUTE PANCREATITIS WITHOUT NECROSIS OR INFECTION Status: Acute Current Visit: Yes (2) Cholelithiasis SNOMED Code(s): 020881529 Code(s): K80.20 - CALCULUS OF GALLBLADDER W/O CHOLECYSTITIS W/O OBSTRUCTION Status: Acute Current Visit: Yes Qualifiers: Cholelithiasis location: gallbladder and bile duct Cholecystitis presence: without cholecystitis Biliary obstruction: with biliary obstruction Qualified Code(s): K80.71 - Calculus of gallbladder and bile duct without cholecystitis with obstruction (3) Biliary obstruction Status: Acute Current Visit: Yes - Problem List Review Problem List Initiated/Reviewed/Updated: Yes - Plan Plan:: ASSESSMENT AND PLAN - Acute Pancreatitis-suspect gallstone pancreatitis with significant cholelithiasi s as well as impressive elevation of AST, ALT and minor elevation of bilirubin. CT and ultrasound have been nondiagnostic. MRCP did not show any stones in the common or cystic duct but did show a lot of stones in the gallbladder. Ongoing improvement. Cholecystectomy completed this morning. -Saline lock IV -Advance diet as tolerated -Symptomatic management of pain and nausea -Repeat lipase and hepatic panel in the morning -Surgical consultation appreciated Hyperglycemia-noted at the time of admission. Blood sugars have normalized. -Discontinue Accu-Cheks History of Heroin addiction-reports was a daily user of IV heroin for 20 years, started Opiate Treatment Program at [place], [place]. May 2020 -Continue Suboxone 12 mg daily History of Alcohol dependence-history of heavy use, sober since May 2020 -Continue outpatient Treatment Program Tobacco dependence -Encourage cessation -Nicotine patch 14 mg daily. Maintenance issues -Nutrition: Clear liquids -Owen catheter not indicated at this time -DVT: SCD -GI; no longer indicated Disposition: I would anticipate discharge home after the hospital stay, possibly this evening or tomorrow Omega Torre MD
--- NOTE | 2021-02-11 08:57 | OR ---
DATE OF PROCEDURE: 02/08/2021 SURGEON: Michael Oliver MD PROCEDURES: 1. Transversus abdominis plane block bilaterally. 2. Rectus sheath blocks bilaterally. COMPLICATION: None. CERAMIC TILER: None. RISKS: Risks, benefits, alternatives, and limitations including, but not limited to infection, bleeding, injury to abdominal structures were explained to the patient who wished to proceed. PROCEDURE IN DETAIL: The patient was placed in supine position. The right transversus plane was addressed first. This was accessed using a 21-gauge needle under direct ultrasound guidance. 20% of the solution was injected under direct visualization. This was then repeated on the left side. Bilateral rectus sheaths were also addressed under direct visualization. 20% was injected in each location respectively. All 4 injections were performed in the same manner, same fashion, same technique in the same sequence using the same equipment. At no point was the needle blindly advanced nor advanced past the peritoneum. The patient tolerated the procedure well. Michael Oliver MD /[id number]
--- NOTE | 2021-02-12 07:11 | OR ---
DATE OF PROCEDURE: 02/08/2021 SURGEON: Michael Oliver MD PROCEDURE: Laparoscopic cholecystectomy. PREOPERATIVE DIAGNOSES: 1. Cholelithiasis. 2. Cholecystitis. POSTOPERATIVE DIAGNOSES: 1. Cholelithiasis. 2. Cholecystitis. COMPLICATIONS: None. [place]: None. RISKS: Risks, benefits, alternatives, and limitations including but not limited to infection, bleeding, cystic duct leaks, common bile duct injuries, possibility of open surgery, hematoma, seroma, and other risks not listed here were explained to the patient and wished to proceed. PROCEDURE IN DETAIL: The patient was placed in supine position. A supraumbilical curvilinear incision was made. A Veress needle was used to enter the abdomen without abnormality. A drop test was performed without abnormality. The abdomen was subsequently entered using an PivotLink trocar system. No evidence of enterotomy or injury was noted. No blood. An additional 10 and two 5 mm ports were entered under direct visualization. The gallbladder was retracted cephalad. The infundibulum was retracted inferolaterally. Using blunt dissection, a "clear view" of the gallbladder was obtained with a single pulsatile structure entering the gallbladder and a single non-pulsatile structure entering the gallbladder. A photo was taken of this. These were subsequently clipped x3 and transected. The remaining 1/3rd of the gallbladder was removed off the gallbladder bed without difficulty. This was delivered through the superior port without difficulty. The pressure was dropped. The fossa was inspected. No abnormalities were noted. The abdomen was irrigated with 1 L of irrigation. The air was removed. The liquid was removed. The wounds were closed with 3-0 Vicryl and 4-0 Vicryl in interrupted running fashion. The patient tolerated the procedure well. Michael Oliver MD /[id number]
== END 2021-02-08 16:45 | disposition home or self-care (01) | DRG 440 ==
LOC: JP.ED 22:45 → JP.ICU 02-04 01:37 → JP.MS 02-08 11:19
PROVIDERS: ADMIT Internal Medicine; ATTEND Internal Medicine
DX: K85.90 Acute pancreatitis without necrosis or infection, unspecified (principal); F11.21 Opioid dependence, in remission; F10.21 Alcohol dependence, in remission; F17.210 Nicotine dependence, cigarettes, uncomplicated; E11.65 Type 2 diabetes mellitus with hyperglycemia; Z88.0 Allergy status to penicillin; Z79.899 Other long term (current) drug therapy
CPT/HCPCS: 36415; 74177; 74181; 76700; 76700-26; 80048; 80053; 80076; 80305-QW; 80307; 81001; 82150; 82947; 83605; 83615; 83690; 83735; 84484; 85025; 85027; 94762; 96374; 99284; 99285-25; A9270-GY; C9113; J0171; J0574-GY; J0690; J0713; J1100; J1815; J2060; J2405; J2704; J2710; J2795; J3010; J3480; J3490; J7030; J7120; Q9967

== ENCOUNTER 2022-12-27 20:17 | Emergency (ER) | payer MEDICAID ==
[2022-12-27] MEDS ORDERED: Ketorolac 30 MG/ML SDV IM ONE (21:50)
== END 2022-12-27 22:40 | disposition home or self-care (01) ==
LOC: JP.ED 20:17
DX: S93.602A Unspecified sprain of left foot, initial encounter (principal); I10 Essential (primary) hypertension; F17.210 Nicotine dependence, cigarettes, uncomplicated; Z88.0 Allergy status to penicillin; X50.1XXA Overexertion from prolonged static or awkward postures, initial encounter; Y93.01 Activity, walking, marching and hiking
CPT/HCPCS: 73610; 73630; 96372; 99283; J1885